=== PATIENT | male | born 1945 | race Caucasian/White ===

== ENCOUNTER → 2016-10-08 | Outpatient (CLI) | payer BC ==
[~2016-10-08] MED LIST: ASPI-435 PO; ATOR-24 PO; ATOR-26 PO; CLOP1TAB15 PO; GLIP10TA3 PO; GLIP2.5T11 PO; LOSA50TA6 PO; METF1000 PO; METO50TA7 PO; PANT40TA PO
[2016-10-08 08:28] LABS: HEMATOCRIT 39.5 % (42-52); MEAN CELL VOLUME 87.8 fL (80-100); MEAN CORPUSCULAR HEMOGLOBIN 29.8 pg (25-34); MEAN CORPUSCULAR HGB CONC 33.9 g/dl (32-36); MEAN PLATELET VOLUME 11.7 fL (7.4-10.4); PLATELET COUNT 171 K/uL (130-400); WHITE BLOOD COUNT 7.35 K/uL (4.8-10.8)
[2016-10-08 09:00] LABS: ALT/SGPT 18 U/L (12-78); AST/SGOT 9 U/L (15-37); BLOOD UREA NITROGEN 17 mg/dl (7-18); BUN/CREATININE RATIO 15.5 (10-20); CALCIUM 8.9 mg/dl (8.5-10.1); CARBON DIOXIDE 27 mmol/L (21-32); CHLORIDE 110 mmol/L (98-107); GLUCOSE 163 mg/dl (70-99); POTASSIUM 3.9 mmol/L (3.5-5.1); SODIUM 147 mmol/L (136-145)
== END | disposition home or self-care (01) ==
LOC: C.LAB 07:08
PROVIDERS: ATTEND Internal Medicine Cardiovascular Disease
DX: I10 Essential (primary) hypertension (principal); E78.5 Hyperlipidemia, unspecified; I25.10 Atherosclerotic heart disease of native coronary artery without angina pectoris

== ENCOUNTER 2016-11-17 12:57 | Emergency (ER) | payer BC ==
[~2016-11-17] VITALS: Ht 175.3 cm; Wt 78.2 kg
[~2016-11-17 12:57] MED LIST changes: -ATOR-24 PO; -ATOR-26 PO; -CLOP1TAB15 PO; -GLIP10TA3 PO; -GLIP2.5T11 PO; -LOSA50TA6 PO; -PANT40TA PO
[2016-11-17 12:59] VITALS: TEMP 36.5; Ht 175.3 cm; Wt 78.2 kg
[2016-11-17] MEDS ORDERED: SODIUM CHLORIDE 0.9% 1000ML 1,000 ML IV STA (13:07)
[2016-11-17] MEDS ORDERED: SODIUM CHLORIDE 0.9% 1000ML 500 ML IV STA (13:07)
[2016-11-17 13:24] LABS: BASO % 0.3 %; BASO ABS # 0.03 K/uL (0-0.2); COMPLETE YES; EOS % 2.4 %; HEMATOCRIT 37.8 % (42-52); IG% 0.2 %; LYMPH % 16.3 %; MEAN CELL VOLUME 85.9 fL (80-100); MEAN CORPUSCULAR HEMOGLOBIN 30.7 pg (25-34); MEAN CORPUSCULAR HGB CONC 35.7 g/dl (32-36); MEAN PLATELET VOLUME 11.4 fL (7.4-10.4); MONO % 6.3 %; NEUT % 74.5 %; PLATELET COUNT 172 K/uL (130-400); WHITE BLOOD COUNT 9.81 K/uL (4.8-10.8)
[2016-11-17 13:44] LABS: BUN/CREATININE RATIO 13.1 (10-20); CALCIUM 8.9 mg/dl (8.5-10.1); CREATININE 1.3 mg/dl (0.60-1.40); POTASSIUM 4.4 mmol/L (3.5-5.1)
[2016-11-17 13:49] LABS: ALB/GLOB RATIO 1.3 (0.9-2)
--- NOTE | 2016-11-17 13:52 | DIAGNOSTIC IMAGING REPORT ---
CHEST ONE VIEW PORTABLE CLINICAL HISTORY: EVALUATE ALTERED MENTAL STATUS/WEAKNESS dyspnea COMPARISON STUDY: 10/21/2014 FINDINGS: The bones soft tissues and hemidiaphragms are normal. The cardiomediastinal silhouette is normal. The lungs are clear. The pulmonary vasculature is normal. IMPRESSION: Negative chest. Electronically signed by: Prince Nazario M.D. 11/17/2016 1:50 PM Dictated Date/Time: 11/17/2016 1:50 PM
[2016-11-17 13:56] LABS: BETA-HYDROXYBUTYRATE 2.56 mg/dL (0.2-2.81)
[2016-11-17] MEDS ORDERED: ATOR-24 PO (14:16)
[2016-11-17] MEDS ORDERED: PANT40TA PO (14:16)
[2016-11-17] MEDS ORDERED: GLIP2.5T11 PO (14:16)
[2016-11-17] MEDS ORDERED: LOSA50TA6 PO (14:17)
[2016-11-17] MEDS ORDERED: CLOP1TAB15 PO (14:17)
--- NOTE | 2016-11-17 15:09 | EMERGENCY ROOM VISIT NOTE ---
History Report prepared by Missy: Yeni Hernández Under the Supervision of: Dr. Jeff Toscano M.D. First contact with patient: 13:00 Chief Complaint: ILLNESS Stated Complaint: RES History of Present Illness The patient is a 71 year old male who presents to the Emergency Room with complaints of resolved lightheadedness occurring a few minutes prior to arrival. He felt at baseline earlier today. The patient was having a discussion about end-of-life care for his when he had the onset of his symptoms. He was standing up at the time but sat down when he started feeling nauseated. He denies vomiting. He also reports feeling flushed and diaphoretic. He denies losing consciousness. As per Dr. Madden, community engagement representative with [facility], the patient's blood sugar level was 313 and he was bradycardic. He has a history of diabetes. His blood sugar level has been fluctuating in the past few days. He had one sandwich today. The patient states that he feels better now. He currently denies any pain, nausea, or any other symptoms. He denies chest pain, shortness of breath, or any other complaints. He does not have any history of syncopal episodes. The patient has a history of cardiac disease. He denies any chest pain or discomfort in the past few weeks. Source of History: patient, other (Dr. Madden) Onset: a few minutes prior to arrival Position: other (global) Symptom Intensity: No pain Quality: other (lightheadedness) Timing: resolved Associated Symptoms: + diaphoresis, + nausea (resolved), No LOC, No SOB, No chest pain, No vomiting Review of Systems See HPI for pertinent positives & negatives. A total of 10 systems reviewed and were otherwise negative. 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 (2) Diab Deanna Wo Compl, Type Ii Or Unspec Type, Uncontrolled (3) Esophagitis Nos (4) Hypertension Nos (5) Mitral Valve Disorder (6) Personal History Of Urinary Calculi (7) Pure Hypercholesterolem Family History Cancer Diabetes mellitus Social History Smoking Status: Former Smoker Alcohol Use: occasionally Marital Status: Housing Status: lives with family Occupation Status: employed Current/Historical Medications Scheduled Aspirin (Aspirin 81), 81 MG PO DAILY Atorvastatin (Lipitor), 1 TAB PO DAILY Clopidogrel (Plavix), 75 MG PO DAILY Glipizide (Glipizide Er), 1 TAB PO DAILY Losartan Potassium (Cozaar), 1 TAB PO DAILY Metformin Hcl (Glucophage), 1,000 MG PO DAILY Metoprolol Succ (Toprol Xl) (Toprol-Xl), 50 MG PO DAILY Pantoprazole (Protonix), 40 MG PO DAILY Allergies Coded Allergies: No Known Allergies (Verified , 10/21/14) Physical Exam Vital Signs Date Time Temp Pulse Resp B/P Pulse Ox O2 Delivery O2 Flow Rate FiO2 11/17/16 15:48 62 16 142/75 99 11/17/16 14:30 61 16 139/76 100 Nasal Cannula 2.0 11/17/16 13:30 61 22 153/77 100 Nasal Cannula 4.0 11/17/16 13:01 59 11/17/16 12:59 36.5 64 18 143/84 100 Nasal Cannula 6.0 Physical Exam GENERAL: Patient is in no acute distress. HEENT: No acute trauma, normocephalic atraumatic, mucous membranes moist, no nasal congestion, no scleral icterus. NECK: No stridor, no adenopathy, no meningismus, trachea is midline. LUNGS: Clear to auscultation bilaterally, no wheeze, no rhonchi, breath sounds equal. HEART: Without murmurs gallops or rubs, regular rate and rhythm. ABDOMEN: Soft, nontender, bowel sounds positive, no hernias, no peritonitis. EXTREMITIES: No cyanosis or edema, full range of motion of all the joints without pain or difficulty, no signs for acute trauma. NEUROLOGIC: Oriented x 3, no acute motor or sensory deficits, no focal weakness. SKIN: Pale and slightly sweaty, no rash. Medical Decision & Procedures ER Provider Diagnostic Interpretation: X-ray results as stated below per interpretation by me and the radiologist: CHEST ONE VIEW PORTABLE CLINICAL HISTORY: EVALUATE ALTERED MENTAL STATUS/WEAKNESS dyspnea COMPARISON STUDY: 10/21/2014 FINDINGS: The bones soft tissues and hemidiaphragms are normal. The cardiomediastinal silhouette is normal. The lungs are clear. The pulmonary vasculature is normal. IMPRESSION: Negative chest. Electronically signed by: Prince Nazario M.D. 11/17/2016 1:50 PM Dictated Date/Time: 11/17/2016 1:50 PM Laboratory Results 11/17/16 13:12 Red Blood Count 4.40, Mean Corpuscular Volume 85.9, Mean Corpuscular Hemoglobin 30.7, Mean Corpuscular Hemoglobin Concent 35.7, Mean Platelet Volume 11.4, Neutrophils (%) (Auto) 74.5, Lymphocytes (%) (Auto) 16.3, Monocytes (%) (Auto) 6.3, Eosinophils (%) (Auto) 2.4, Basophils (%) (Auto) 0.3, Neutrophils # (Auto) 7.30, Lymphocytes # (Auto) 1.60, Monocytes # (Auto) 0.62, Eosinophils # (Auto) 0.24, Basophils # (Auto) 0.03 11/17/16 13:12 Test 11/17/16 13:12 11/17/16 15:14 11/17/16 15:18 White Blood Count 9.81 K/uL (4.8-10.8) Red Blood Count 4.40 M/uL (4.7-6.1) Hemoglobin 13.5 g/dL (14.0-18.0) Hematocrit 37.8 % (42-52) Mean Corpuscular Volume 85.9 fL (80-100) Mean Corpuscular Hemoglobin 30.7 pg (25-34) Mean Corpuscular Hemoglobin Concent 35.7 g/dl (32-36) Platelet Count 172 K/uL (130-400) Mean Platelet Volume 11.4 fL (7.4-10.4) Neutrophils (%) (Auto) 74.5 % Lymphocytes (%) (Auto) 16.3 % Monocytes (%) (Auto) 6.3 % Eosinophils (%) (Auto) 2.4 % Basophils (%) (Auto) 0.3 % Neutrophils # (Auto) 7.30 K/uL (1.4-6.5) Lymphocytes # (Auto) 1.60 K/uL (1.2-3.4) Monocytes # (Auto) 0.62 K/uL (0.11-0.59) Eosinophils # (Auto) 0.24 K/uL (0-0.5) Basophils # (Auto) 0.03 K/uL (0-0.2) RDW Standard Deviation 42.1 fL (36.4-46.3) RDW Coefficient of Variation 13.4 % (11.5-14.5) Immature Granulocyte % (Auto) 0.2 % Immature Granulocyte # (Auto) 0.02 K/uL (0.00-0.02) Anion Gap 9.0 mmol/L (3-11) Est Creatinine Clear Calc Drug Dose 50.6 ml/min Estimated GFR () 62.7 Estimated GFR (Non- 54.1 BUN/Creatinine Ratio 13.1 (10-20) Calcium Level 8.9 mg/dl (8.5-10.1) Total Bilirubin 0.9 mg/dl (0.2-1) Aspartate Amino Transf (AST/SGOT) 9 U/L (15-37) Alanine Aminotransferase (ALT/SGPT) 23 U/L (12-78) Alkaline Phosphatase 81 U/L (45-117) Total Protein 6.8 gm/dl (6.4-8.2) Albumin 3.9 gm/dl (3.4-5.0) Globulin 2.9 gm/dl (2.5-4.0) Albumin/Globulin Ratio 1.3 (0.9-2) Beta-Hydroxybutyric Acid 2.56 mg/dL (0.2-2.81) Bedside Glucose 329 mg/dl (70-99) Bedside Troponin I 0.000 ng/ml (0-0.045) Laboratory results reviewed by me. Medications Administered Medications (Trade) Dose Ordered Sig/Daniel Route Start Time Stop Time Status Last Admin Dose Admin Sodium Chloride 500 ml @ 999 mls/hr Q31M STAT IV 11/17/16 13:07 11/17/16 13:37 DC 11/17/16 13:13 999 MLS/HR Sodium Chloride (Nss 1000ml) 1,000 ml @ 200 mls/hr Q5H STAT IV 11/17/16 13:07 11/17/16 16:25 DC 11/17/16 13:12 200 MLS/HR ECG Indication: other (Lightheadedness) Rate (beats per minute): 61 Rhythm: sinus rhythm Findings: PVC, no acute ischemic change, no ectopy ED Course 1300: The patient was evaluated in room D04B. A complete history and physical exam was performed. 1307: Sodium Chloride 1000 ml @ 200 mls/hr IV, Sodium Chloride 500 mls/hr IV 1525: Reevaluated the patient who is feeling a lot better. Family states that the patient seems to be at baseline. Discussed results and discharge instructions: He verbalized understanding and agreement. The patient is ready for discharge. Medical Decision Differential diagnosis includes but is not limited to near syncope, vasovagal syncope. stress response, dysrhythmia, hypotension, anemia, electrolyte imbalance, dehydration, [place]. There is no leukocytosis or concerning anemia. Renal panel testing show some hyperglycemia with a sugar around 300, no kidney failure. There was no hepatitis. EKG showed a sinus rhythm with a PVC, no acute ischemia. Cardiac enzyme testing times 2 is not consistent with acute cardiac injury. Chest x- ray shows no cardiomegaly or CHF. There was no pneumonia. On exam, there were no focal neurologic deficits. The patient received IV saline, he did eat lunch. He feels much better than before and currently has no complaints. His family believes he is at baseline. I think the patient had a strong grief response and a near syncopal episode as a result. He is hyperglycemic but he does run higher with his sugars. He does feel he can be discharged, he would like to go back to the ICU. He was encouraged to keep a very close watch on his sugars. He will stay better hydrated. If worsening, he can return. Impression Primary Impression: Near syncope Additional Impression: Grief reaction Scribe Attestation The scribe's documentation has been prepared under my direction and personally reviewed by me in its entirety. I confirm that the note above accurately reflects all work, treatment, procedures, and medical decision making performed by me. Departure Information Dispostion Home / Self-Care Referrals Gianni Lugo M.D. (PCP) Forms HOME CARE DOCUMENTATION FORM, IMPORTANT VISIT INFORMATION, WORK / SCHOOL INSTRUCTIONS Patient Instructions My [facility] [address] [employer] Additional Instructions stay well hydrated your sugar was in the 300 range today--keep a watch to be sure it is coming down and not worsening return for worsening symptoms workup today was reassuring Problem Qualifiers
[2016-11-17 15:48] VITALS: BP 142/75; PULSE 62; O2SAT 99
[2016-11-18] MEDS ORDERED: ATOR-26 PO (19:28)
[2016-11-18] MEDS ORDERED: GLIP10TA3 PO (19:28)
== END 2016-11-17 15:49 | disposition home or self-care (01) ==
LOC: EDBD 12:57 → C.EDD 12:59
DX: R55 Syncope and collapse (principal); F43.20 Adjustment disorder, unspecified; E11.9 Type 2 diabetes mellitus without complications; I25.10 Atherosclerotic heart disease of native coronary artery without angina pectoris; I10 Essential (primary) hypertension; Z87.442 Personal history of urinary calculi; E78.00 Pure hypercholesterolemia, unspecified; Z83.3 Family history of diabetes mellitus; Z87.891 Personal history of nicotine dependence; Z79.82 Long term (current) use of aspirin; Z79.899 Other long term (current) drug therapy

== ENCOUNTER 2016-11-18 19:18 | Emergency (ER) | payer BC ==
[~2016-11-18] VITALS: Ht 170.2 cm; Wt 78.0 kg
[2016-11-18 19:18] VITALS: TEMP 36.9; Ht 170.2 cm; Wt 78.0 kg
[~2016-11-18 19:18] MED LIST changes: +ATOR-24 PO; +CLOP1TAB15 PO; +GLIP2.5T11 PO; +LOSA50TA6 PO; +PANT40TA PO
[2016-11-18] MEDS ORDERED: GLIP10TA3 PO (19:28)
[2016-11-18] MEDS ORDERED: ATOR-26 PO (19:28)
--- NOTE | 2016-11-18 22:06 | EMERGENCY ROOM VISIT NOTE ---
History Report prepared by Missy: Delia Shanks Under the Supervision of: Dr. Alberto Dhaliwal M.D. First contact with patient: 21:55 Chief Complaint: OTHER COMPLAINT Stated Complaint: CODE PURPLE History of Present Illness The patient is a 71 year old male who presents to the Emergency Room with complaints of an episode of near syncope this evening in the hospital. The patient was visiting his in the ICU today. The patient was told that his this evening. Shortly afterward, the patient's blood sugar went up and he became dizzy. The patient almost passed out. The patient has a history of diabetes. The patient states that he would like to go home. The patient denies chest pain, shortness of breath, vomiting, blood or black stool, fevers, feeling numb or weak. The patient states that he has been eating normally. Source of History: patient, family Onset: this evening Position: other (global ) Quality: other (near syncope) Timing: other (episode ) Associated Symptoms: No SOB, No chest pain, No fevers, No melena, No numbness, No vomiting, No weakness Review of Systems See HPI for pertinent positives & negatives. A total of 10 systems reviewed and were otherwise negative. 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 Nurse's notes were reviewed and I agree with. Family History Cancer Diabetes mellitus Social History Smoking Status: Never Smoker Alcohol Use: occasionally Marital Status: Housing Status: lives with family Occupation Status: employed Current/Historical Medications Scheduled Aspirin (Aspirin 81), 81 MG PO DAILY Atorvastatin (Lipitor), 80 MG PO DAILY Clopidogrel (Plavix), 75 MG PO DAILY Glipizide (Glucotrol), 10 MG PO BID Losartan Potassium (Cozaar), 1 TAB PO DAILY Metformin Hcl (Glucophage), 1,000 MG PO BID Metoprolol Succ (Toprol Xl) (Toprol-Xl), 50 MG PO DAILY Pantoprazole (Protonix), 40 MG PO DAILY Allergies Coded Allergies: No Known Allergies (Verified , 11/18/16) Physical Exam Vital Signs Date Time Temp Pulse Resp B/P Pulse Ox O2 Delivery O2 Flow Rate FiO2 11/18/16 22:08 69 16 150/85 96 11/18/16 21:39 69 16 150/85 96 Room Air 11/18/16 19:30 61 11/18/16 19:18 36.9 60 18 165/99 96 Room Air Physical Exam General: Non ill appearing older male in no acute distress. HEENT: Normal cephalic atraumatic. Pupils are equal round and reactive to light. Extraocular movements are intact. Oropharynx is pink with moist mucous membranes. No swelling of the mouth lips or tongue. Neck: Supple with a midline trachea. No meningeal signs or stiffness, no JVD or bruits. No Stridor. Chest: Clear to auscultation bilaterally. No wheezes or rhonchi. No increased work of breathing. Heart: regular rate and rhythm. Abdomen: Soft nontender, nondistended without rebound guarding or rigidity. Extremities: No cyanosis clubbing or edema. No calf tenderness or assymetry Spine/Back. Non tender to palpation. No CVA tenderness Skin: Good turgor without rashes. Neurologic exam: Cranial nerves two through 12 are intact. Motor and sensation are intact and symmetrical throughout. Medical Decision & Procedures Laboratory Results Test 11/18/16 19:25 Bedside Glucose 239 mg/dl (70-99) Laboratory studies as stated above per my review. ECG Indication: syncope (near syncope) Rate (beats per minute): 60 Rhythm: normal sinus Findings: no acute ischemic change, no ectopy Comparison ECG Date: November 17, 2016 Change: no significant change ED Course 2156: Past medical records reviewed. The patient was evaluated in room C9, and a complete history and physical examination were performed. 2210: Upon reevaluation, the patient is feeling better. I discussed the results and treatment plan with the patient. He verbalized agreement of the treatment plan. The patient was discharged home. Medical Decision Differentials include, but are not limited to; diabetic emergency, acute coronary syndrome, infection, CVA, electrolyte or metabolic abnormality. This patient comes in as described above. He was placed in room C9. He is here for treatment and evaluation of dizziness/near syncopal episode. He was in the hospital with his who unfortunately . shortly after hearing the news ,he became dizzy and his blood sugar was high as well. He says he feels fine now and just wants to go home. He has no chest pain. There is no syncope was here last night after feeling dizzy and had a normal workup. He has no fall focal numbness weakness or headache .no trauma, no blood or melena in his stool. Blood sugar was in the 200s. His EKG shows no acute ischemic changes or ectopy. There is no change compared to EKG from yesterday and the patient declined blood work and says he just wants to go home. He did let me do an EKG. I asked talked to the patient's family members at length I told him that I cannot 100% rule out a cardiac event or other etiology based on the workup so far he again declines and just wants to go home. He thinks this most likely was related to stress and he seems to be doing okay now. Family is in agreement with this. I encouraged him follow-up with his doctor Monday for recheck or return to the ER if: chest pain, worsening of symptoms, fever or chills, any new problems or concerns. He is happy with the plan and discharged to home Impression Primary Impression: Near syncope Scribe Attestation The scribe's documentation has been prepared under my direction and personally reviewed by me in its entirety. I confirm that the note above accurately reflects all work, treatment, procedures, and medical decision making performed by me. Departure Information Dispostion Home / Self-Care Referrals Gianni Lugo M.D. (PCP) Forms HOME CARE DOCUMENTATION FORM, IMPORTANT VISIT INFORMATION, WORK / SCHOOL INSTRUCTIONS Patient Instructions My [facility] [employer] Additional Instructions Rest Drink plenty of fluids Check youtr blood sugar frequently Return if: worsening of symptoms, chest pain, shortness of breath, fever, increasng pain, any new problems or concerns Follow-up with your doctor in 1-2 days for recheck
[2016-11-18 22:08] VITALS: BP 150/85; PULSE 69; O2SAT 96
== END 2016-11-18 22:11 | disposition home or self-care (01) ==
LOC: EDBD 19:18 → C.EDC 19:19
DX: R55 Syncope and collapse (principal); I25.10 Atherosclerotic heart disease of native coronary artery without angina pectoris; E11.9 Type 2 diabetes mellitus without complications; I10 Essential (primary) hypertension; I05.9 Rheumatic mitral valve disease, unspecified; Z87.442 Personal history of urinary calculi; E78.00 Pure hypercholesterolemia, unspecified; Z79.82 Long term (current) use of aspirin

== ENCOUNTER → 2017-02-17 | Outpatient (CLI) | payer BC ==
[~2017-02-17] MED LIST changes: -ATOR-24 PO; +ATOR-26 PO; +GLIP10TA3 PO; -GLIP2.5T11 PO
[2017-02-17 13:22] LABS: ESTIMATED AVERAGE GLUCOSE 223 mg/dl; HA1C FLAG Normal (Normal)
[2017-02-17 13:31] LABS: ALT/SGPT 25 U/L (12-78); AST/SGOT 10 U/L (15-37); BLOOD UREA NITROGEN 16 mg/dl (7-18); BUN/CREATININE RATIO 12.5 (10-20); CARBON DIOXIDE 28 mmol/L (21-32); CHLORIDE 104 mmol/L (98-107); CHOLESTEROL 83 mg/dl (0-200); GLUCOSE 337 mg/dl (70-99); POTASSIUM 4.1 mmol/L (3.5-5.1); SODIUM 142 mmol/L (136-145); TRIGLYCERIDES 66 mg/dl (0-150); VERY LOW DENSITY LIPOPROT CALC 13 mg/dl
[2017-02-17 14:04] LABS: ALB/GLOB RATIO 1.1 (0.9-2); ALKALINE PHOSPHATASE 75 U/L (45-117); HDL CHOLESTEROL 41 mg/dl
[2017-02-17 14:10] LABS: HEMATOCRIT 41.2 % (42-52); MEAN CELL VOLUME 89.6 fL (80-100); MEAN CORPUSCULAR HEMOGLOBIN 29.3 pg (25-34); MEAN CORPUSCULAR HGB CONC 32.8 g/dl (32-36); MEAN PLATELET VOLUME 11.7 fL (7.4-10.4); PLATELET COUNT 200 K/uL (130-400); WHITE BLOOD COUNT 8.16 K/uL (4.8-10.8)
[2017-02-17 14:12] LABS: BASO ABS # 0.15 K/uL (0-0.2); BASOPHIL % 1.8 % (0-2); BETA-HYDROXYBUTYRATE 1.22 mg/dL (0.2-2.81); COMPLETE YES; ECHINOCYTES 1+; EOSINOPHIL % 1.8 %; LYMPH ABS # 1.65 K/uL (1.2-3.4); LYMPHOCYTE % 20.2 %; NEUTROPHILS % 71.8 %; VARIANT LYM ABS # 0.15 K/uL; VARIANT LYMPHOCYTE % 1.8 %
== END | disposition home or self-care (01) ==
LOC: C.LABSPEC 12:12
PROVIDERS: ATTEND Internal Medicine
DX: E11.65 Type 2 diabetes mellitus with hyperglycemia (principal); I25.10 Atherosclerotic heart disease of native coronary artery without angina pectoris; E78.5 Hyperlipidemia, unspecified; I10 Essential (primary) hypertension

== ENCOUNTER → 2017-06-26 | Outpatient (CLI) | payer BC ==
[2017-06-26 12:57] LABS: ESTIMATED AVERAGE GLUCOSE 223 mg/dl; HA1C FLAG Normal (Normal)
[2017-06-26 13:10] LABS: ALT/SGPT 19 U/L (12-78); BLOOD UREA NITROGEN 24 mg/dl (7-18); BUN/CREATININE RATIO 17.9 (10-20); CALCIUM 9.2 mg/dl (8.5-10.1); CARBON DIOXIDE 29 mmol/L (21-32); CHLORIDE 106 mmol/L (98-107); CHOLESTEROL 85 mg/dl (0-200); CREATININE 1.33 mg/dl (0.60-1.40); GLUCOSE 176 mg/dl (70-99); POTASSIUM 4.1 mmol/L (3.5-5.1); SODIUM 142 mmol/L (136-145)
[2017-06-26 13:13] LABS: ALB/GLOB RATIO 1.2 (0.9-2); ALKALINE PHOSPHATASE 74 U/L (45-117); AST/SGOT 6 U/L (15-37); CHOLESTEROL/HDL RATIO 2.2; HDL CHOLESTEROL 38 mg/dl; TRIGLYCERIDES 138 mg/dl (0-150); VERY LOW DENSITY LIPOPROT CALC 28 mg/dl
== END | disposition home or self-care (01) ==
LOC: C.LABSPEC 12:17
PROVIDERS: ATTEND Internal Medicine
DX: I25.10 Atherosclerotic heart disease of native coronary artery without angina pectoris (principal); E11.65 Type 2 diabetes mellitus with hyperglycemia; E78.5 Hyperlipidemia, unspecified; I10 Essential (primary) hypertension

== ENCOUNTER → 2017-09-06 | Day surgery (SDC) | payer BC ==
[2017-08-21 07:36] VITALS: Ht 175.3 cm; Wt 79.5 kg
[~2017-09-06] VITALS: Ht 175.3 cm; Wt 79.5 kg
[~2017-09-06] MED LIST changes: +500ML BSS 0.3ML EPI 1:1000PF IRRIG ONE; +ACETAMINOPHEN 325 MG TAB PO PRN; +AMVISC PLUS 0.8ML SYRINGE INT OCU ONE; +ATROPINE SULFATE 0.1 MG/ML 5ML SYR IV PRN; +AcetaZOLAMIDE 250 MG TAB PO SCH; +BETAXOLOL HCL 0.25% OP SUSP PER DROP CHARGE OPL SCH; +BRIMONIDINE TART 0.2% OP SOLN PER DROP CHARGE ONE; +BSS FLUSH ONE; +ENDOCOAT 0.85ML SYRINGE INT OCU ONE; +EpHEDrine SULFATE INJ 50 MG/ML AMP IV PRN; +EpINEphrine INJ 1MG/ML AMP 1 MG/ML AMP ONE; +LACTATED RINGER'S 1000ML 500 ML IV SCH; +LIDOCAINE 4% OP SOLN DROP CHARGE ONE; +LIDOCAINE 4% OP SOLN DROP CHARGE OPL SCH; +LIDOCAINE HCL 1% MPF 2 ML VIAL ONE; -LOSA50TA6 PO; +MIDAZOLAM HCL 1 MG/ML 2ML VIAL ONE; +MIX: 4ML BSS 1ML EPI 1:1000 PF INSTIL ONE; +MOXIFLOXACIN OPH SOLN PER DROP CHARGE ONE; +NovoLIN-R INSULIN PER UNIT CHARGE ONE; +OCUCOAT 1 ML SOLN IO ONE; -PANT40TA PO; +POVIDONE-IODINE OP SOLN 30 ML BTL ONE; +PROPARACAINE 0.5% OP SOLN PER DROP CHARGE OPL SCH; +TOBRAMYCIN/DEXAMETHASONE OPH OINT PER APPLN CHARGE ONE
--- NOTE | 2017-09-06 06:45 | History & Physical Bridge - SC ---
H&P Re-Evaluation Bridge Note: I have examined the patient, reviewed the History & Physical and in the interval since the performance of the History & Physical I have noted the following changes of clinical significance: No changes noted
[2017-09-06] MEDS: PHENYLEPHRINE HCL 2.5% OP SOLN PER DROP CHARGE OPL SCH ×2 (06:52→06:57)
[2017-09-06] MEDS: TROPICAMIDE 1% OP SOLN PER DROP CHARGE OPL SCH ×2 (06:53→06:58)
[2017-09-06] MEDS: CYCLOPENTOLATE HCL 1% OP SOLN PER DROP CHARGE OPL SCH ×2 (06:54→06:59)
[2017-09-06] MEDS: MOXIFLOXACIN OPH SOLN PER DROP CHARGE OPL SCH ×2 (06:55→07:07)
--- NOTE | 2017-09-06 07:35 | Discharge Instructions-SurgCtr ---
Discharge Instructions Date of Service Sep 06, 2017. Visit Reason for Visit: Cataract Left Eye Discharge Discharge Diagnosis / Problem: lens implant left eye Discharge Goals Goal(s): Improve function Medications Stopped Medications Name(s): metformin stopped 2 days ago Activity Recommendations Activity Limitations: resume your previous activity Lifting Limitations: no more than 10 pounds Exercise/Sports Limitations: gradually increase as tolerated May Resume Sexual Activity: when tolerated Shower/Bathe: tomorrow Driving or Machine Use: resume 1 day after discharge Anesthesia . Post Anesthesia Instructions: If you have had General Anesthesia or IV Sedation: * Do not drive today. * Resume driving when surgeon permits. * Do not make important decisions or sign legal documents today. * Call surgeon for: 1. Temperature elevations greater than 101 degrees F. 2. Uncontrollable pain. 3. Excessive bleeding. 4. Persistent nausea and vomiting. 5. Medication intolerance (nausea, vomiting or rash). * For nausea and vomiting use only clear liquids such as: tea, soda, bouillon until nausea subsides, then gradually increase diet as tolerated. * If you have any concerns or questions, call your surgeon's office. If physician is unavailable and it is an emergency, call 911 or go to the nearest emergency room. . Instructions / Follow-Up Instructions / Follow-Up ACTIVITY RECOMMENDATIONS: * Light activities. * Mild irritation and blurred vision are common for the first few days. * You may walk outside, read, watch television. * Redness around the white part of the eye is common. MEDICATIONS: Resume previous medications unless instructed otherwise by your surgeon. * Take white Diamox (Acetazolamide) tablet at 1 pm today. Start all eye drops at 1 pm today: * Eye drops (today and tomorrow): Prednisone - one drop in operative eye every 3 hours while awake Ofloxacin - one drop in operative eye every 3 hours while awake Prolensa - one drop in operative eye once daily SPECIAL CARE INSTRUCTIONS: * Tape plastic shield over eye to sleep at night. Call your doctor at with any concerns or problems. FOLLOW UP VISIT: Follow-up with Dr Emery at [place] office as scheduled. Diet Recommendations Home Diet: no limitations Procedures Procedures Performed: cataract extraction with lens implant Pending Studies Studies pending at discharge: no Medical Emergencies . Who to Call and When: Medical Emergencies: If at any time you feel your situation is an emergency, please call 911 immediately. . Non-Emergent Contact Non-Emergency issues call your: Sane Rn Call Non-Emergent contact if: your pain is not controlled [phone] . . "Provider Documentation" section prepared by Lalo Emery. .
--- NOTE | 2017-09-06 07:37 | [facility] Operative Report ---
Operative Report Date of Service Sep 06, 2017. Operative Report 1. PREOPERATIVE DIAGNOSIS: Senile nuclear cataract, left eye. 2. POSTOPERATIVE DIAGNOSIS: Senile nuclear cataract, left eye. 3. PROCEDURE: Phacoemulsification of left cataract with posterior chamber lens implant, type Bausch [employer] Lomb, model MX60, power +22.0 diopters. ANESTHESIA: Local standby. SURGEON: Dr. Emery. COMPLICATIONS: None. OPERATING TIME: 10 minutes. 4. OPERATION AND FINDINGS: DESCRIPTION OF PROCEDURE: The left pupil was dilated. The anesthetic was administered using a topical technique. The left eye was prepped and draped. A speculum was placed. A clear corneal incision was formed. The chamber was filled with Amvisc Plus and Endocoat. Epinephrine solution was used. A paracentesis was placed. A capsulorrhexis was performed. The nucleus was hydrodissected. The lens was removed with phacoemulsification. Time was 2.99 seconds. The aspiration unit was used to remove the cortex. The capsule was filled with Amvisc Plus. The lens implant was folded and placed into the capsule. The incision was hydrated. The Amvisc was aspirated. The wound was secure. The chamber was deep. The pupil was round. Brimonidine, TobraDex ointment and Vigamox solution were placed. The speculum was removed. The patient was returned to the Recovery Room in stable condition. I attest to the content of the Intraoperative Record and any orders documented therein. Any exceptions are noted below. The scribe's documentation has been prepared in my presence, under my direction and personally reviewed by me in its entirety. I confirm that the note above accurately reflects all work, treatment, procedures, and medical decision making performed by me. I personally scribed for Lalo Emery M.D. ([email or web address]) on 09/06/17 at 07:37. Electronically submitted by Marely Marie ([email or web address]).
[2017-09-06 07:49] VITALS: TEMP 36.8
--- NOTE | 2017-09-06 08:02 | Anesthesia Progress Nt - [facility] ---
Anesthesia Post Op Note Date & Time Sep 06, 2017 at 08:01 Vital Signs Pain Intensity: 0 Vital Signs Past 12 Hours Date Time Temp Pulse Resp B/P (MAP) Pulse Ox O2 Delivery O2 Flow Rate FiO2 09/06/17 06:40 36.7 74 16 177/95 (122) 95 Room Air Notes Mental Status: alert / awake / arousable, participated in evaluation Pt Amnestic to Procedure: Yes Nausea / Vomiting: adequately controlled Pain: adequately controlled Airway Patency, RR, SpO2: stable & adequate BP & HR: stable & adequate Hydration State: stable & adequate Anesthetic Complications: no major complications apparent Patient instructed to take his metformin and eat when he returns home.
--- NOTE | 2017-09-06 08:03 | Anesthesia Progress Nt - [facility] ---
Anesthesia Post Op Note Date & Time Sep 06, 2017 at 08:02 Vital Signs Pain Intensity: 0 Vital Signs Past 12 Hours Date Time Temp Pulse Resp B/P (MAP) Pulse Ox O2 Delivery O2 Flow Rate FiO2 09/06/17 06:40 36.7 74 16 177/95 (122) 95 Room Air Notes Mental Status: alert / awake / arousable, participated in evaluation Pt Amnestic to Procedure: Yes Nausea / Vomiting: adequately controlled Pain: adequately controlled Airway Patency, RR, SpO2: stable & adequate BP & HR: stable & adequate Hydration State: stable & adequate Anesthetic Complications: no major complications apparent
[2017-09-06 08:26] VITALS: BP 167/91; PULSE 58; O2SAT 95
== END | disposition home or self-care (01) ==
LOC: X.SURG 06:26
PROVIDERS: ATTEND Specialist
DX: H25.12 Age-related nuclear cataract, left eye (principal); I10 Essential (primary) hypertension; E78.00 Pure hypercholesterolemia, unspecified; E78.5 Hyperlipidemia, unspecified; E11.9 Type 2 diabetes mellitus without complications; Z87.442 Personal history of urinary calculi; F17.220 Nicotine dependence, chewing tobacco, uncomplicated

== ENCOUNTER → 2017-09-27 | Day surgery (SDC) | payer BC ==
[2017-09-26 15:03] VITALS: Ht 175.3 cm; Wt 79.5 kg
[~2017-09-27] VITALS: Ht 175.3 cm; Wt 79.5 kg
[~2017-09-27] MED LIST changes: -BETAXOLOL HCL 0.25% OP SUSP PER DROP CHARGE OPL SCH; +BETAXOLOL HCL 0.25% OP SUSP PER DROP CHARGE OPR SCH; -EpHEDrine SULFATE INJ 50 MG/ML AMP IV PRN; +INSULIN HUMAN REGULAR SC ONE; -LIDOCAINE 4% OP SOLN DROP CHARGE OPL SCH; +LIDOCAINE 4% OP SOLN DROP CHARGE OPR SCH; -PROPARACAINE 0.5% OP SOLN PER DROP CHARGE OPL SCH; +PROPARACAINE 0.5% OP SOLN PER DROP CHARGE OPR SCH
[2017-09-27] MEDS: PHENYLEPHRINE HCL 2.5% OP SOLN PER DROP CHARGE OPR SCH ×2 (08:17→08:24)
[2017-09-27] MEDS: TROPICAMIDE 1% OP SOLN PER DROP CHARGE OPR SCH ×2 (08:18→08:25)
[2017-09-27] MEDS: CYCLOPENTOLATE HCL 1% OP SOLN PER DROP CHARGE OPR SCH ×2 (08:19→08:26)
[2017-09-27] MEDS: MOXIFLOXACIN OPH SOLN PER DROP CHARGE OPR SCH ×2 (08:20→08:31)
--- NOTE | 2017-09-27 08:56 | [facility] Operative Report ---
Operative Report Date of Service Sep 27, 2017. Operative Report 1. PREOPERATIVE DIAGNOSIS: Senile nuclear cataract, right eye. 2. POSTOPERATIVE DIAGNOSIS: Senile nuclear cataract, right eye. 3. PROCEDURE: Phacoemulsification of right cataract with posterior chamber lens implant, type [employer]ch [employer], model MX60, power +21.0 diopters. ANESTHESIA: Local standby. SURGEON: Dr. Emery. COMPLICATIONS: None. OPERATING TIME: 10 minutes. 4. OPERATION AND FINDINGS: DESCRIPTION OF PROCEDURE: The right pupil was dilated. The anesthetic was administered using a topical technique. The right eye was prepped and draped. A speculum was placed. A clear corneal incision was formed. The chamber was filled with Amvisc Plus and Endocoat. Epinephrine solution was used. A paracentesis was placed. A capsulorrhexis was performed. The nucleus was hydrodissected. The lens was removed with phacoemulsification. Time was 4.44 seconds. The aspiration unit was used to remove the cortex. The capsule was filled with Amvisc Plus. The lens implant was folded and placed into the capsule. An astigmatic incision was placed at the limbus across from the main incision. The incisions were hydrated. The Amvisc was aspirated. The wounds were secure. The chamber was deep. The pupil was round. Brimonidine, TobraDex ointment and Vigamox solution were placed. The speculum was removed. The patient was returned to the Recovery Room in stable condition. I attest to the content of the Intraoperative Record and any orders documented therein. Any exceptions are noted below. The scribe's documentation has been prepared in my presence, under my direction and personally reviewed by me in its entirety. I confirm that the note above accurately reflects all work, treatment, procedures, and medical decision making performed by me. I personally scribed for Lalo Emery M.D. ([email or web address]) on 09/27/17 at 08:56. Electronically submitted by Marely QUIROZ).
[2017-09-27 08:58] VITALS: TEMP 36.3
--- NOTE | 2017-09-27 08:59 | Discharge Instructions-SurgCtr ---
Discharge Instructions Date of Service Sep 27, 2017. Visit Reason for Visit: Cataract Right Eye Discharge Discharge Diagnosis / Problem: lens implant right eye Discharge Goals Goal(s): Improve function Medications Stopped Medications Name(s): METFORMIN- LAST DOSE MONDAY Activity Recommendations Activity Limitations: resume your previous activity Lifting Limitations: no more than 10 pounds Exercise/Sports Limitations: gradually increase as tolerated May Resume Sexual Activity: when tolerated Shower/Bathe: tomorrow Driving or Machine Use: resume 1 day after discharge Anesthesia . Post Anesthesia Instructions: If you have had General Anesthesia or IV Sedation: * Do not drive today. * Resume driving when surgeon permits. * Do not make important decisions or sign legal documents today. * Call surgeon for: 1. Temperature elevations greater than 101 degrees F. 2. Uncontrollable pain. 3. Excessive bleeding. 4. Persistent nausea and vomiting. 5. Medication intolerance (nausea, vomiting or rash). * For nausea and vomiting use only clear liquids such as: tea, soda, bouillon until nausea subsides, then gradually increase diet as tolerated. * If you have any concerns or questions, call your surgeon's office. If physician is unavailable and it is an emergency, call 911 or go to the nearest emergency room. . Instructions / Follow-Up Instructions / Follow-Up ACTIVITY RECOMMENDATIONS: * Light activities. * Mild irritation and blurred vision are common for the first few days. * You may walk outside, read, watch television. * Redness around the white part of the eye is common. MEDICATIONS: Resume previous medications unless instructed otherwise by your surgeon. * Take white Diamox (Acetazolamide) tablet at 1 pm today. Start all eye drops at 1 pm today: * Eye drops (today and tomorrow): Prednisone - one drop in operative eye every 3 hours while awake Ofloxacin - one drop in operative eye every 3 hours while awake Prolensa - one drop in operative eye once daily SPECIAL CARE INSTRUCTIONS: * Tape plastic shield over eye to sleep at night. Call your doctor at with any concerns or problems. FOLLOW UP VISIT: Follow-up with Dr Emery at [place] office as scheduled. Diet Recommendations Home Diet: no limitations Procedures Procedures Performed: Right Eye Cataract Phacoemulsification With Intraocular Lens Implants Pending Studies Studies pending at discharge: no Medical Emergencies . Who to Call and When: Medical Emergencies: If at any time you feel your situation is an emergency, please call 911 immediately. . Non-Emergent Contact Non-Emergency issues call your: Marketing Analytics Specialist Call Non-Emergent contact if: your pain is not controlled [phone] . . "Provider Documentation" section prepared by Lalo Emery. .
[2017-09-27 09:27] VITALS: BP 155/87; PULSE 56; O2SAT 97
--- NOTE | 2017-09-27 09:36 | Anesthesia Progress Nt - [facility] ---
Anesthesia Post Op Note Date & Time Sep 27, 2017 at 09:36 Vital Signs Pain Intensity: 0 Vital Signs Past 12 Hours Date Time Temp Pulse Resp B/P (MAP) Pulse Ox O2 Delivery O2 Flow Rate FiO2 09/27/17 09:27 56 16 155/87 (109) 97 Room Air 09/27/17 08:58 36.3 57 16 143/85 (104) 96 Room Air 09/27/17 08:06 36.9 62 22 149/94 (112) 96 Room Air Notes Mental Status: alert / awake / arousable, participated in evaluation Pt Amnestic to Procedure: Yes Nausea / Vomiting: adequately controlled Pain: adequately controlled Airway Patency, RR, SpO2: stable & adequate BP & HR: stable & adequate Hydration State: stable & adequate Anesthetic Complications: no major complications apparent
== END | disposition home or self-care (01) ==
LOC: X.SURG 07:48
PROVIDERS: ATTEND Specialist
DX: H25.11 Age-related nuclear cataract, right eye (principal); I10 Essential (primary) hypertension; Z79.84 Long term (current) use of oral hypoglycemic drugs; Z79.899 Other long term (current) drug therapy

== ENCOUNTER 2023-07-17 19:53 | Inpatient (IN) ==
[2023-07-17] MEDS ORDERED: ACETAMINOPHEN 500 MG TAB PO STA (20:03)
--- NOTE | 2023-07-17 20:07 | Emergency Department Note ---
Impression & Plan Generalized weakness, COVID-19, Elevated CK, Acute hypoxic respiratory failure ED Provider Note HISTORY OF PRESENT ILLNESS: Patient is an 78-year-old male presenting with generalized weakness. Patient reports that he has been feeling generally unwell for the last 48 hours. Denies any recent sick contact exposures. Denies any chest pain or shortness of breath. He does not wear any supplemental oxygen at baseline. EMS reported that the patient was having nausea, vomiting and diarrhea, but the patient denies any of this on my assessment. Patient denies any recent travel. He denies any cough. Denies any dysuria or hematuria. ROS: as above PHYSICAL EXAM: Constitutional: Patient appears in no acute distress. HENT: Head: Normocephalic and atraumatic. Eyes: EOMI, PERRL Mouth/Throat: Mucous membranes moist. Neck: Trachea midline. Neck supple. Cardiovascular: RRR, No murmurs, rubs or gallops. Intact distal pulses. Pulmonary/Chest: No respiratory distress. Breath sounds clear and equal bilaterally. No wheezes or rales. Abdominal: Abdomen soft, no tenderness, rebound or guarding. Musculoskeletal: No edema, tenderness or deformity noted. Patient is able to straight leg raise of bilateral legs without any pain in his back or pelvis. Skin: Warm and dry. No rash, erythema, pallor or cyanosis Psychiatric: Appropriate mood and affect for situation. Neurological: Alert and keenly responsive. CN II-XII grossly intact, moving all extremities equally and fully. MDM: - Vitals signs showed hypoxic down to 80% on room air. He is placed on 2 L nasal cannula. - History obtained via patient and EMS. Patient presents with generalized weakness. Patient reports he been feeling generally well for the last 48 hours. Denies any recent sick contact exposures. Denies any chest pain or shortness of breath. He does not wear supplemental oxygen at baseline. Denies any DVT or PE history. EMS reports that the family had said the patient was having nausea, vomiting and diarrhea for the last few days. Patient denies this on arrival. Denies any recent travel. - Chronic conditions affecting care: DM-2; HTN; HLD; CAD - Differential diagnoses include, but are not limited to: ACS; pneumonia; UTI; viral syndrome; PE; electrolyte abnormality; CVA - Order placed for continuous cardiac monitoring. At this time, monitor showed rate of 77 bpm with normal sinus rhythm, per my interpretation. - External medical records reviewed. EMS run sheet was reviewed. Patient medically stable in route. - EKG reviewed by myself showed normal sinus rhythm. Rate 78 bpm. QTc 433. No acute ischemic changes. - Laboratory workup interpreted by myself showed leukocytosis (WBC 12.75); CKD ; normal troponin; normal lactate; elevated CK (344); normal BNP - Biofire positive for COVID-19 infection - UA negative for infection - CXR negative for pneumonia, per my interpretation. - Patient given 1g IV tylenol and 1L NS in ER. Given 20 mg IV solumedrol in ER. - Patient still having significant weakness in the emergency department, likely secondary to COVID-19 infection. He is also still requiring supplemental oxygen to keep his saturations above 93%. - Discussion was had with care management about patient's case and need for admission - Hospitalist consulted for admission - [facility] ASSESSMENT AND PLAN: Diagnosis: Generalized weakness; COVID-19 infection; acute hypoxic respiratory failure; elevated CK Plan: admit Past Med/Surg History Medical History (Updated 07/18/23 @ 01:23 by Barbara Guerrero MD) Type 2 diabetes mellitus with retinopathy Vitamin D deficiency Anemia due to chronic kidney disease Type 2 diabetes mellitus with chronic kidney disease Diabetic retinopathy Chronic kidney disease, stage 3 Dyslipidemia Hypertension CAD (coronary artery disease) Surgical History S/P coronary artery stent placement Family History Sister Cancer Mother Cancer Denies family history of Ovarian cancer Prostate cancer Myocardial infarction Breast cancer Colorectal cancer Social History Smoking Status: Current every day smoker Tobacco Type: Smokeless Tobacco (Dip or Chew) Age Started Using Tobacco: 13; Age Quit Using Tobacco: 23; Second Hand Exposure: No; Do You Dip or Chew Tobacco: Yes; Hx Alcohol Use: No Hx Substance Use: No Preferred Language: Mohawk marital status: / Current Living Situation: Alone current occupational status: retired Feels Safe at Home: Yes Childhood Exposure to Second-Hand Smoke: Yes Dental Care, Regularly: No Physical Activity Frequency: Does not Exercise Seatbelt Use: sometimes Sunscreen Use: Yes Allergies Allergies Allergy/AdvReac Type Severity Reaction Status Date / Time No Known Allergies Allergy Verified 07/17/23 21:17 Home Meds Home Medications Medication Instructions Recorded Confirmed aspirin 81 mg tablet,delayed 81 mg PO DAILY 07/17/23 07/17/23 release cyanocobalamin (vitamin B-12) 100 0 mcg PO DAILY 07/17/23 07/17/23 mcg tablet glipizide 10 mg tablet 10 mg PO QPM 07/17/23 07/17/23 glipizide 10 mg tablet 20 mg PO QAM 07/17/23 07/17/23 Previous Rx's Medication Instructions Recorded metoprolol succinate 100 mg 100 mg PO DAILY #90 tabs 11/03/22 tablet,extended release 24 hr cholecalciferol (vitamin D3) 50 50 mcg PO DAILY #30 caps 11/07/22 mcg (2,000 unit) capsule amlodipine 10 mg tablet 10 mg PO DAILY #90 tabs 11/28/22 losartan 100 mg tablet 100 mg PO DAILY #90 tabs 11/28/22 insulin glargine 100 unit/mL (3 25 unit (0.25 mL) subcut QAM #45 mL 03/07/23 mL) subcutaneous pen (Lantus Solostar U-100 Insulin) atorvastatin 40 mg tablet 40 mg PO DAILY #90 tabs 06/20/23 clopidogrel 75 mg tablet 75 mg PO DAILY #90 tabs 06/20/23 empagliflozin 10 mg tablet 10 mg PO DAILY #90 tabs 07/10/23 (Jardiance) pantoprazole 40 mg tablet,delayed 40 mg PO DAILY #90 tabs 07/10/23 release Results & Data (ED) Vital Signs Vital Signs - 24 hr 07/17/23 20:00 07/17/23 21:05 07/17/23 21:30 Temperature 38 C H Temperature Source Oral Pulse Rate 77 80 75 Pulse Rate from SpO2 Sensor Respiratory Rate 20 18 Blood Pressure 141/69 H 119/59 L Blood Pressure Mean 93 79 Pulse Oximetry 92 99 Oxygen Delivery Method Room Air Oxygen Flow Rate Sepsis Recent Fever Within 48 Hours No Sepsis New/Unexplained Change in Mental Status No Sepsis Action Taken by Nursing No Action Required Oxygen Flow Rate - Titration Pulse Oximetry Post Tiitration 07/17/23 21:37 07/17/23 23:00 07/17/23 23:30 Temperature Temperature Source Pulse Rate 67 65 Pulse Rate from SpO2 Sensor 67 65 Respiratory Rate 15 18 Blood Pressure 118/65 130/66 Blood Pressure Mean 82 87 Pulse Oximetry 88 L 96 95 Oxygen Delivery Method Room Air Nasal Cannula Nasal Cannula Nasal Cannula Oxygen Flow Rate 0 3 3 Sepsis Recent Fever Within 48 Hours Sepsis New/Unexplained Change in Mental Status Sepsis Action Taken by Nursing Oxygen Flow Rate - Titration 3 Pulse Oximetry Post Tiitration 95 07/18/23 00:00 Temperature Temperature Source Pulse Rate 74 Pulse Rate from SpO2 Sensor 74 Respiratory Rate 12 Blood Pressure 134/69 Blood Pressure Mean 90 Pulse Oximetry 98 Oxygen Delivery Method Room Air Oxygen Flow Rate Sepsis Recent Fever Within 48 Hours Sepsis New/Unexplained Change in Mental Status Sepsis Action Taken by Nursing Oxygen Flow Rate - Titration Pulse Oximetry Post Tiitration Laboratory Data 07/17/23 20:31 07/17/23 20:31 Lab Results 07/17/23 07/17/23 07/17/23 Range/Units 20:31 20:40 Unknown WBC 12.75 H (4.8-10.8) K/ul RBC 4.68 L (4.70-6.10) M/uL Hgb 14.4 (14.0-18.0) g/dl Hct 43.1 (42.0-52.0) % MCV 92.1 (80.0-100.0) fL MCH 30.8 (25.0-34.0) pg MCHC 33.4 (32.0-36.0) g/dL RDW Std Deviation 46.8 H (36.4-46.3) fL RDW Coeff of Evelyne 13.8 (11.5-14.5) % Plt Count 174 (130-400) K/uL MPV 12.0 (9.4-12.4) fL Immature Gran % (Auto) 0.2 % Neut % (Auto) 86.1 % Lymph % (Auto) 5.3 % [place] % (Auto) 7.8 % Eos % (Auto) 0.2 % Baso % (Auto) 0.4 % Neut # (Auto) 10.98 H (1.40-6.50) K/uL Lymph # (Auto) 0.67 L (1.20-3.40) K/uL [place] # (Auto) 1.00 H (0.11-0.59) K/uL Eos # (Auto) 0.02 (0.00-0.50) K/uL Baso # (Auto) 0.05 (0.00-0.20) K/uL Immature Gran # (Auto) 0.03 (0.01-0.20) K/uL PT 11.4 (9.0-12.0) Seconds INR 1.0 (0.9-1.1) Sodium 138 (136-145) mmol/L Potassium 4.7 (3.5-5.1) mmol/L Chloride 107 (98-107) mmol/L Carbon Dioxide 21 (21-32) mmol/L Anion Gap 10 (3-11) BUN 40 H (6-23) mg/dl Creatinine 2.23 H (0.6-1.4) mg/dl Est Cr Clr Drug Dosing 29.6 ml/min Est GFR ( Amer) 31.1 ml/min Est GFR (Non-Af Amer) 26.8 ml/min BUN/Creatinine Ratio 17.9 (10-20) Glucose 221 H (70-99(Fasting)) mg/dl Lactate 1.9 (0.4-2.0) mmol/L Calcium 9.5 (8.6-10.3) mg/dl Magnesium 2.0 (1.7-2.4) mg/dl Total Bilirubin 1.2 H (0.2-1.0) mg/dl AST 20 (13-39) U/L ALT 27 (7-52) U/L Alkaline Phosphatase 79 (34-104) U/L Total Creatine Kinase 344 H (30-223) U/L Troponin I High Sens 8.6 (0-20) pg/ml B-Natriuretic Peptide 93 (0-100) pg/ml Total Protein 7.2 (6.0-8.3) gm/dl Albumin 4.2 (3.4-5.0) gm/dl Globulin 3.0 (2.5-4.0) gm/dl Albumin/Globulin Ratio 1.4 (0.9-2) Urine Color Yellow Urine Appearance Clear (Clear) Urine pH 5.0 (4.5-7.5) Ur Specific [place] 1.027 (1.000-1.030) Urine Protein 1+ H (Negative) Urine Glucose (UA) 3+ H (Negative) Urine Ketones Negative (Negative) Urine Blood Trace H (Negative) Urine Nitrite Negative (Negative) Urine Bilirubin Negative (Negative) Urine Urobilinogen Negative (Negative) Ur Leukocyte Esterase Negative (Negative) Urine WBC (Auto) 0 (0-5) /hpf Urine RBC (Auto) 0-4 (0-4) /hpf U Hyaline Cast (Auto) 0 (0-5) /lpf U Epithel Cells (Auto) 0-5 (0-5) /lpf Urine Bacteria (Auto) Negative (Negative) Adenovirus (PCR) Not Detected (NotDetected) B. pertussis DNA (PCR) Not Detected (NotDetected) B.parapertussis DNA PCR Not Detected (NotDetected) C. pneumoniae DNA (PCR) Not Detected (NotDetected) Coronavirus OC43 (PCR) Not Detected (NotDetected) Coronavirus HKU1 (PCR) Not Detected (NotDetected) Coronavirus 229E (PCR) Not Detected (NotDetected) SARS-CoV-2 (PCR) DETECTED A* (NotDetected) Coronavirus NL63 (PCR) Not Detected (NotDetected) Human Metapneumovir PCR Not Detected (NotDetected) Influenza Type A (PCR) Not Detected (NotDetected) Influenza Type B (PCR) Not Detected (NotDetected) M. pneumoniae (PCR) Not Detected (NotDetected) Parainfluenza 1 (PCR) Not Detected (NotDetected) Parainfluenza 2 (PCR) Not Detected (NotDetected) Parainfluenza 3 (PCR) Not Detected (NotDetected) Parainfluenza 4 (PCR) Not Detected (NotDetected) RSV (PCR) Not Detected (NotDetected) Entero/Rhino (PCR) Not Detected (NotDetected) Administered Medications Remdesivir 200 mg/ Sodium (Chloride) 250 mls @ 125 mls/hr IV ONE STA; Protocol Stop: 07/18/23 02:48 Last Admin: 07/18/23 01:14 Dose: 125 mls/hr Documented By: KMF Discontinued Medications Acetaminophen (Acetaminophen 500 Mg Tab) 1,000 mg PO NOW STA Stop: 07/17/23 20:04 Last Admin: 07/17/23 20:35 Dose: 1,000 mg Documented By: QUINTON Sodium Chloride (Nss) 1,000 mls @ 999 mls/hr IV .Q1H1M MELY Stop: 07/17/23 21:15 Last Infusion: 07/17/23 22:00 Dose: Infused Documented By: Admin: 07/17/23 20:35 Dose: 999 mls/hr Documented By: QUINTON Methylprednisolone (Methylprednisolone 40 Mg/Ml Vial) 20 mg IV NOW STA Stop: 07/17/23 23:53 Last Admin: 07/18/23 01:11 Dose: 20 mg Documented By: [email or web address] Discharge Plan Visit Data Chief Complaint: Illness Stated Complaint: Vomiting, Weakness, Diarrhea ED Provider: Barbara Guerrero Discharge Problem: Generalized weakness, COVID-19, Elevated CK, Acute hypoxic respiratory failure Forms Stand Alone Forms: [facility] Prescriptions Prescriptions: No Action cholecalciferol (vitamin D3) 50 mcg (2,000 unit) capsule 50 mcg PO DAILY Qty: 30 0RF amlodipine 10 mg tablet 10 mg PO DAILY Qty: 90 3RF losartan 100 mg tablet 100 mg PO DAILY Qty: 90 3RF insulin glargine [Lantus Solostar U-100 Insulin] 100 unit/mL (3 mL) insulin pen 25 unit subcut QAM Qty: 45 2RF metoprolol succinate 100 mg tablet extended release 24 hr 100 mg PO DAILY Qty: 90 3RF atorvastatin 40 mg tablet 40 mg PO DAILY Qty: 90 3RF clopidogrel 75 mg tablet 75 mg PO DAILY Qty: 90 3RF Jardiance 10 mg tablet 10 mg PO DAILY Qty: 90 3RF pantoprazole 40 mg tablet,delayed release (DR/EC) 40 mg PO DAILY Qty: 90 3RF aspirin [Aspir-81] 81 mg Tablet,Delayed Release (Dr/Ec) 81 mg PO DAILY glipizide 10 mg tablet 20 mg PO QAM glipizide 10 mg tablet 10 mg PO QPM cyanocobalamin (vitamin B-12) 100 mcg Tablet 0 mcg PO DAILY Referrals Referrals: Nadege Erickson MD [Primary Care Provider] -
[2023-07-17] MEDS ORDERED: SODIUM CHLORIDE 0.9% 1,000 ML IV SCH (20:15)
[2023-07-17 21:03] LABS: Appearance Urine Clear (Clear); Bacteria Urine Automated Negative (Negative); Bilirubin Urine Negative (Negative); Blood Urine Trace (Negative); Cast Urine Automated 0 /lpf (0-5); Color Urine Yellow; Epithelial Cell Urine Auto 0-5 /lpf (0-5); Glucose Urine UA 3+ (Negative); Ketones Urine Negative (Negative); Leukocyte Esterase Urine Negative (Negative); Nitrite Urine Negative (Negative); Protein Urine 1+ (Negative); RBC Urine Automated 0-4 /hpf (0-4); Specific Gravity Urine 1.027 (1.000-1.030); Urobilinogen Urine Negative (Negative); WBC Urine Automated 0 /hpf (0-5)
[2023-07-17 21:11] LABS: Albumin Globulin Ratio 1.4 (0.9-2); Albumin Level 4.2 gm/dl (3.4-5.0); BUN Creatinine Ratio 17.9 (10-20); Bilirubin,Total 1.2 mg/dl (0.2-1.0); Calcium 9.5 mg/dl (8.6-10.3); Creatinine Clr Calc Pharmacy 29.6 ml/min; Est GFR (African American) 31.1 ml/min; Est GFR (Non-African American) 26.8 ml/min; Potassium 4.7 mmol/L (3.5-5.1); Total Protein 7.2 gm/dl (6.0-8.3)
[2023-07-17 21:13] LABS: Basophils # (auto) 0.05 K/uL (0.00-0.20); Basophils % (auto) 0.4 %; Eosinophils # (auto) 0.02 K/uL (0.00-0.50); Eosinophils % (auto) 0.2 %; Hematocrit (blood only) 43.1 % (42.0-52.0); Hemoglobin 14.4 g/dl (14.0-18.0); Immature Granulocytes # (auto) 0.03 K/uL (0.01-0.20); Immature Granulocytes % (auto) 0.2 %; Lymphocytes # (auto) 0.67 K/uL (1.20-3.40); Lymphocytes % (auto) 5.3 %; Mean Corpuscular Hemoglobin 30.8 pg (25.0-34.0); Mean Corpuscular Hgb Conc 33.4 g/dL (32.0-36.0); Mean Corpuscular Volume 92.1 fL (80.0-100.0); Monocytes % (auto) 7.8 %; Neutrophils # (auto) 10.98 K/uL (1.40-6.50); Neutrophils % (auto) 86.1 %; Platelet Count 174 K/uL (130-400); RDW Coefficient of Variation 13.8 % (11.5-14.5); RDW Standard Deviation 46.8 fL (36.4-46.3); Red Blood Count 4.68 M/uL (4.70-6.10); White Blood Count 12.75 K/ul (4.8-10.8)
[2023-07-17 21:17] LABS: Troponin I High Sensitivity 8.6 pg/ml (0-20)
[2023-07-17 21:42] LABS: Prothrombin Time 11.4 Seconds (9.0-12.0)
[2023-07-17 23:08] LABS: Adenovirus PCR Not Detected (NotDetected); Bordetella parapertussis PCR Not Detected (NotDetected); Bordetella pertussis PCR Not Detected (NotDetected); Chlamydia pneumoniae PCR Not Detected (NotDetected); Coronavirus 229E PCR Not Detected (NotDetected); Coronavirus HKU1 PCR Not Detected (NotDetected); Coronavirus NL63 PCR Not Detected (NotDetected); Coronavirus OC43PCR Not Detected (NotDetected); Human Metapneumovirus PCR Not Detected (NotDetected); Influenza A PCR Not Detected (NotDetected); Influenza B PCR Not Detected (NotDetected); Mycoplasma pneumoniae PCR Not Detected (NotDetected); Parainfluenza Virus 1 PCR Not Detected (NotDetected); Parainfluenza Virus 2 PCR Not Detected (NotDetected); Parainfluenza Virus 3 PCR Not Detected (NotDetected); Parainfluenza Virus 4 PCR Not Detected (NotDetected); Respiratory Syncytial VirusPCR Not Detected (NotDetected); Rhinovirus/Enterovirus PCR Not Detected (NotDetected)
[2023-07-17 23:20] LABS: Coronavirus CoV-2 (COVID19)PCR DETECTED (NotDetected)
[2023-07-18] MEDS ORDERED: guaiFENesin/DEXTROM SYRUP 100MG/10MG 5ML UDC PO STA (00:49)
[2023-07-18] MEDS ORDERED: REMDESIVIR 200 MG in SODIUM CHLORIDE 0.9% 210 ML IV STA (00:49)
--- NOTE | 2023-07-18 01:16 | History & Physical Report ---
Date of Service July 18, 2023 Assessment & Plan (1) COVID-19: Plan: 78 M with PMH of HTN, T2DM, dyslipidemia, CAD s/p stent, who presented with fatigue, weakness, and cough. Now stable and admitted for further management of acute COVID-19 illness. COVID-19/generalized weakness -COVID-19 positive on biofire. Febrile. O2 saturation 88% on arrival saturating >95% on 2 L O2 via NC. Slight leukocytosis (WBC-12.75). BNP-93. L actate-1.9. -No increased work of breathing. Speaking complete sentences lungs clear to auscultation on admission exam. -S/p IV methylprednisolone 20 mg in the ED. -Received loading dose of remdesivir 200 mg on admission. * Admit to [facility] telemetry * IV remdesivir 100 mg daily on days 2-5. * IV dexamethasone 6 mg daily x10 days, or until discharge. * Guaifenesin 10 mL every 6 hours as needed * Combivent inhaler 4 times daily x24 hours * Tylenol 1000 mg p.o. every 8 hours as needed for fever Elevated CK -344 on ED labs. Vague complaint of generalized myalgia no focal muscle pain. -Patient does take atorvastatin for dyslipidemia. -S/p NS bolus x1 L in the ED. * Trend on morning labs. T2DM -Chronic. On glipizide, empagliflozin, and glargine 25 units daily. -Serum glucose 221 on admission. Last [id number] in March. * Holding glipizide, empagliflozin. * Continue glargine at home dose * Sliding scale insulin, ACHS glucose checks per protocol (CF-30, CR-5, range = 100-140) * Trend HgbA1c on a.m. labs CKD 4 -eGFR on admission 26.8. Cr 2.23, which is at baseline. * Monitor on daily labs CAD s/p stent/dyslipidemia -On aspirin 81 mg, atorvastatin 40 mg daily, clopidogrel 75 mg daily, losartan 100 mg daily, and Toprol 100 mg daily. -No echo reports on file. Patient follows with [facility] cardiology (most recent visit note mentions abnormal stress echo from September 2015 suggestive of apical ischemia at 79% MPHR). * Continue current regimen Hypertension -Well-controlled on amlodipine 10 mg daily, losartan 100 mg daily, and Toprol 100 mg daily. * Continue current regimen Vitamin D deficiency * Continue home vitamin D3 (2000 IU) tabs daily Code: Full code Dispo: Med-Surg telemetry FEN/GI: Heart healthy/Carb consistent DVT Prophylaxis: Lovenox 40 mg q24h PT/OT: No Consults: None Case Management: No (2) Generalized weakness: (3) Elevated CK: (4) Type 2 diabetes mellitus with retinopathy: (5) Vitamin D deficiency: (6) CKD (chronic kidney disease) stage 4, GFR 15-29 ml/min: (7) Dyslipidemia: (8) Hypertension: (9) CAD (coronary artery disease): History of Present Illness Primary Care Provider: Nadege Erickson MD Dale is an 78-year-old man with past medical history of type 2 diabetes, hypertension, hyperlipidemia, CKD 4, and CAD who presents with weakness and fatigue x2 days. Son and [id number] were worried about his weakness, as he lives alone and called EMS to bring him to the emergency room. Per EMS, he reported nausea, vomiting, and diarrhea. However, in the ED he denies all of these, as well as chest pain or shortness of breath. He further denies recent exposures to sick contacts. He denies recent travel, dysuria or hematuria. ROS + on admission cough, fever. In the ED, vitals were notable for fever of 38 C, and hypoxia to the 80s on room air. He was subsequently placed on a 2 L oxygen via nasal cannula, after which his saturation improved. Labs were notable for WBC count of 12.75 (neutrophilic predominance), BUN-40, Cr-2.23, CK-344, and T. bili-1.2. Urinalysis revealed proteinuria 1+, trace hematuria, and 3+ glucosuria but was negative for nitrites, leuk esterase or bacteriuria. Respiratory Biofire PCR panel returned positive solely for COVID-19. He received a dose of p.o. Tylenol, IV methylprednisolone 20 mg, and a 1 L bolus of normal saline. Hospitalist service was then consulted for admission. Allergies Allergy/AdvReac Type Severity Reaction Status Date / Time No Known Allergies Allergy Verified 07/17/23 21:17 Home Medications Medication Instructions Recorded Confirmed Type metoprolol succinate 100 mg 100 mg PO DAILY #90 tabs 11/03/22 07/17/23 Rx tablet,extended release 24 hr cholecalciferol (vitamin D3) 50 50 mcg PO DAILY #30 caps 11/07/22 07/17/23 Rx mcg (2,000 unit) capsule amlodipine 10 mg tablet 10 mg PO DAILY #90 tabs 11/28/22 07/17/23 Rx losartan 100 mg tablet 100 mg PO DAILY #90 tabs 11/28/22 07/17/23 Rx insulin glargine 100 unit/mL (3 25 unit (0.25 mL) subcut QAM #45 mL 03/07/23 07/17/23 Rx mL) subcutaneous pen (Lantus Solostar U-100 Insulin) atorvastatin 40 mg tablet 40 mg PO DAILY #90 tabs 06/20/23 07/17/23 Rx clopidogrel 75 mg tablet 75 mg PO DAILY #90 tabs 06/20/23 07/17/23 Rx empagliflozin 10 mg tablet 10 mg PO DAILY #90 tabs 07/10/23 07/17/23 Rx (Jardiance) pantoprazole 40 mg tablet,delayed 40 mg PO DAILY #90 tabs 07/10/23 07/17/23 Rx release aspirin 81 mg tablet,delayed 81 mg PO DAILY 07/17/23 07/17/23 History release cyanocobalamin (vitamin B-12) 100 0 mcg PO DAILY 07/17/23 07/17/23 History mcg tablet glipizide 10 mg tablet 10 mg PO QPM 07/17/23 07/17/23 History glipizide 10 mg tablet 20 mg PO QAM 07/17/23 07/17/23 History Past Med/Surg History Medical History (Updated 07/18/23 @ 01:34 by Nury Zee MD) Edema Type 2 diabetes mellitus with retinopathy Vitamin D deficiency Anemia due to chronic kidney disease Type 2 diabetes mellitus with chronic kidney disease Diabetic retinopathy Chronic kidney disease, stage 3 Dyslipidemia Hypertension CAD (coronary artery disease) Surgical History S/P coronary artery stent placement Family History Sister Cancer Mother Cancer Denies family history of Ovarian cancer Prostate cancer Myocardial infarction Breast cancer Colorectal cancer Social History Smoking Status: Never smoker Tobacco Type: Smokeless Tobacco (Dip or Chew) Age Started Using Tobacco: 13; Age Quit Using Tobacco: 23; Second Hand Exposure: No; Do You Dip or Chew Tobacco: Yes; Hx Alcohol Use: No Hx Substance Use: No Preferred Language: Slovak Communication Ability: Effective 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 marital status: / Current Living Situation: Alone current occupational status: retired Other Information That Helps Us Care for You: No Feels Safe at Home: Yes Safety Concerns: Feels Safe At This Time Childhood Exposure to Second-Hand Smoke: Yes Dental Care, Regularly: No Physical Activity Frequency: Does not Exercise Seatbelt Use: sometimes Sunscreen Use: Yes Assistive Devices: Denture - Upper, Denture - Lower and Oxygen - Continuous Review of Systems Review of Systems: All systems reviewed & are unremarkable except as noted in HPI & below Physical Exam Physical Exam: General: No acute distress HEENT: PERRLA. Normal conjunctiva, anicteric sclera. Oropharynx normal. Respiratory: Normal respiratory effort, CTABL. Cardiovascular: RRR without murmurs, gallops, or rubs. No pedal edema. GI: Soft abdomen. Nontender x4 quadrants Neuro: Alert and oriented x3. Results & Data Results & Data Vital Signs (Past 12 Hours) Vital Signs Temp Pulse Resp BP Pulse Ox O2 Del Method O2 Flow Rate 07/18/23 00:00 74 12 134/69 98 Room Air 07/17/23 23:30 65 18 130/66 95 Nasal Cannula 3 07/17/23 23:00 67 15 118/65 96 Nasal Cannula 3 07/17/23 21:37 88 L Room Air, Nasal Cannula 0 07/17/23 21:30 75 18 119/59 L 99 07/17/23 21:05 80 07/17/23 20:00 38 C H 77 20 141/69 H 92 Room Air Supervising Physician Co-Signing Physician Notes Patient seen and examined, chart reviewed, case discussed with Dr. Zee and I agree with the assessment and plan as documented above. In brief, patient is an 78-year-old male with history of diabetes, hypertension, hyperlipidemia, CKD and CAD presenting with 2 days of weakness and fatigue. Patient has been having difficulty ambulating and going about his ADLs. In the ER he was found to be febrile at 38 with mild hypoxia requiring placement of supplemental oxygen. Found to be positive for COVID 19 infection. On physical exam patient is febrile, hemodynamically stable. Adequate oxygenation on 2 L nasal cannula Generalpatient awake alert, following commands HEENTpupils equal and reactive, moist mucous membranes, neck supple Heart+ S1, S2, regular, no murmur/rub/gallops LungsCTA anteriorly, no rales/rhonchi/wheezes Abdomensoft, nontender, nondistended Extremitieswarm, well-perfused Labs and images reviewed Assessment/[id number] male presenting with COVID-19 infection, generalized weakness and mild hypoxia requiring supplemental oxygen Admit to medical telemetry Treatment of COVID-19 with dexamethasone 6 mg IV daily as well as remdesivir per protocol. Symptomatic management with guaifenesin, Combivent Tylenol as n eeded Management of chronic medical problems as above Resident Activity Tracking Resident Involvement: Resident Care Provided Care Provided: Adult Hospital Medicine (4) Type 2 diabetes mellitus with retinopathy Diabetes mellitus jail insulin use: with jail use Diabetes mellitus macular edema: macular edema presence unspecified Diabetic retinopathy severit y: with unspecified retinopathy severity Laterality: unspecified laterality Qualified Code(s): E11.319 - Type 2 diabetes mellitus with unspecified diabetic retinopathy without macular edema; Z79.4 - [facility] (current) use of insulin
[2023-07-18] MEDS ORDERED: CARBOHYDRATES FOR HYPOGLYCEMIA PO PRN (01:31)
[2023-07-18] MEDS ORDERED: ACETAMINOPHEN 500 MG TAB PO PRN (01:31)
[2023-07-18] MEDS ORDERED: GLUCOSE 40% GEL 15 GM TUBE PO PRN (01:31)
[2023-07-18] MEDS ORDERED: guaiFENesin/DEXTROM SYRUP 200MG/20MG 10ML UDC PO PRN (01:31)
[2023-07-18] MEDS ORDERED: GLUCAGON FOR INJ 1 MG VIAL SQ PRN (01:31)
[2023-07-18] MEDS ORDERED: GLUCOSE 10 TAB/TUBE PO PRN (01:31)
[2023-07-18] MEDS ORDERED: DEXTROSE 50% 50 ML SYRINGE IV PRN (01:31)
[2023-07-18] MEDS: dexAMETHasone 6 MG in SYRINGE 0 ML IV SCH (01:41)
[2023-07-18] MEDS: INSULIN ASPART PER UNIT CHARGE SC SCH ×5 (02:10→20:12)
[2023-07-18 05:30] LABS: BUN Creatinine Ratio 18.9 (10-20); Creatinine Clr Calc Pharmacy 33.6 ml/min; Est GFR (African American) 36.4 ml/min; Est GFR (Non-African American) 31.4 ml/min; Potassium 4.5 mmol/L (3.5-5.1)
[2023-07-18] MEDS ORDERED: IPRATROPIUM BROMIDE HFA INHALER INH SCH (07:00)
[2023-07-18] MEDS ORDERED: ALBUTEROL HFA 8 GM INHALER INH SCH (07:00)
--- NOTE | 2023-07-18 07:34 | XRay Report ---
XR chest 1V portable HISTORY: 78 years-old Male weakness; cough acute cough with weakness COMPARISON: 11/17/2016 TECHNIQUE: AP view of the chest FINDINGS: Cardiac silhouette is enlarged. Atherosclerosis of the aorta. Mild linear scarring versus atelectasis in the left lung base. The lungs are hypoinflated. No pneumothorax, pleural effusion or overt pulmon vale edema. Degenerative changes of the shoulders and spine. Chronic mid left clavicular fracture defo rmity. IMPRESSION: Hypoinflation without acute process. ACT 112: Negative or not required by law. The above report was generated using voice recognition software. It may contain grammatical, syntax o r spelling errors. Electronically signed by: Jeffrey Smith M.D. 07/18/2023 7:33 AM
[2023-07-18] MEDS: amLODIPine BESYLATE 5 MG TAB PO SCH (08:05)
[2023-07-18] MEDS: ASPIRIN 81 MG ECTAB PO SCH (08:05)
[2023-07-18] MEDS: CLOPIDOGREL BISULFATE 75 MG TAB PO SCH (08:06)
[2023-07-18] MEDS: CHOLECALCIFEROL 1,000 UNITS 25 MCG TAB PO SCH (08:06)
[2023-07-18] MEDS: ATORVASTATIN 40 MG TAB PO SCH (08:06)
[2023-07-18] MEDS: ENOXAPARIN INJ 40 MG/0.4 ML SYR SQ SCH (08:07)
[2023-07-18] MEDS: CYANOCOBALAMIN (B-12) 100 MCG TABLET PO SCH (08:07)
[2023-07-18] MEDS: LOSARTAN POTASSIUM 50 MG TAB PO SCH (08:08)
[2023-07-18] MEDS: METOPROLOL SUCC 50MG EXT REL TAB PO SCH (08:08)
[2023-07-18] MEDS: PANTOprazole 40 MG TAB PO SCH (08:08)
[2023-07-18 08:24] LABS: Estimated Average Glucose 203 mg/dl; Hemoglobin A1C 8.7 % (4.5-5.6)
--- NOTE | 2023-07-18 08:24 | Hospitalist Progress Note ---
Date of Service July 18, 2023 Assessment & Plan (1) COVID-19: Plan: 78 M with PMH of HTN, T2DM, dyslipidemia, CAD s/p stent, who presented with fatigue, weakness, and cough. Now stable and admitted for further management of acute COVID-19 illness. COVID-19/generalized weakness -COVID-19 positive on biofire. Febrile. O2 saturation 88% on arrival saturating >95% on 2 L O2 via NC. Slight leukocytosis (WBC-12.75). BNP-93. Lactate-1.9. -S/p IV methylprednisolone 20 mg in the ED. -Received loading dose of remdesivir 200 mg on admission. * IV remdesivir 100 mg daily on days 2-5. * IV dexamethasone 6 mg daily x10 days, or until discharge. * Guaifenesin 10 mL every 6 hours as needed * Combivent inhaler PRN * Tylenol 1000 mg p.o. every 8 hours as needed for fever Elevated CK -344 on ED labs. Vague complaint of generalized myalgia no focal muscle pain. -Patient does take atorvastatin for dyslipidemia. -S/p NS bolus x1 L in the ED. Up trending. gentle IVF * Continue to trend T2DM -Chronic. On glipizide, empagliflozin, and glargine 25 units daily. Sugars will likely run high in the setting of steroid use. HbA1c 8.7 * Holding glipizide, empagliflozin. * Continue glargine at home dose * Sliding scale insulin, ACHS glucose checks per protocol (CF-30, CR-5, range = 100-140) CKD 4 -eGFR on admission 26.8. Cr 2.23, which is at baseline. * Monitor on daily labs CAD s/p stent/dyslipidemia -On aspirin 81 mg, atorvastatin 40 mg daily, clopidogrel 75 mg daily, losartan 100 mg daily, and Toprol 100 mg daily. * Continue current regimen Hypertension -Well-controlled on amlodipine 10 mg daily, losartan 100 mg daily, and Toprol 100 mg daily. * Continue current regimen Code: Full code Dispo: Med-Surg telemetry FEN/GI: Heart healthy/Carb consistent DVT Prophylaxis: Lovenox 40 mg q24h PT/OT: No Consults: None Case Management: No (2) Generalized weakness: (3) Elevated CK: (4) Type 2 diabetes mellitus with retinopathy: (5) Vitamin D deficiency: (6) CKD (chronic kidney disease) stage 4, GFR 15-29 ml/min: (7) Dyslipidemia: (8) Hypertension: (9) CAD (coronary artery disease): Admission and Anticipated Discharge Date Admission Date: July 18, 2023 Supervising Physician Co-Signing Physician Notes Resident Physician Supervision Note: I independently interviewed and examined the patient and verified the rivers history and physical, reviewed labs and image studies and agree with resident findings and care plan. Subjective Seen at bedside this AM. No respiratory distress. On minimal oxygen. Feeling much improved Physical Exam 2 Physical Exam: General: No acute distress HEENT: PERRLA. Normal conjunctiva, anicteric sclera. Oropharynx normal. Respiratory: Normal respiratory effort, CTABL. Cardiovascular: RRR without murmurs, gallops, or rubs. No pedal edema. GI: Soft abdomen. Nontender x4 quadrants Neuro: Alert and oriented x3. Results & Data Results & Data Vital Signs (Past 12 Hours) Vital Signs Pulse Pulse Resp BP BP Pulse Ox Pulse Ox 07/18/23 08:03 72 18 144/78 H 93 07/18/23 07:36 68 20 139/70 94 07/18/23 07:27 67 07/18/23 07:27 68 13 95 07/18/23 06:00 67 19 128/74 92 07/18/23 04:00 66 19 122/67 92 07/18/23 03:00 71 22 138/84 93 07/18/23 02:36 07/18/23 02:11 95 07/18/23 02:00 64 18 136/75 96 07/18/23 01:01 63 07/18/23 00:00 74 12 134/69 98 07/17/23 23:30 65 18 130/66 95 07/17/23 23:00 67 15 118/65 96 07/17/23 21:37 88 L 07/17/23 21:30 75 18 119/59 L 99 07/17/23 21:05 80 O2 Del Method O2 Del Method O2 Flow Rate O2 Flow Rate 07/18/23 08:03 Room Air 07/18/23 07:36 Room Air 07/18/23 07:27 07/18/23 07:27 Room Air 07/18/23 06:00 Nasal Cannula 2 07/18/23 04:00 Nasal Cannula 2 07/18/23 03:00 Nasal Cannula 2 07/18/23 02:36 Nasal Cannula 2 07/18/23 02:11 Room Air 2 07/18/23 02:00 Nasal Cannula 2 07/18/23 01:01 07/18/23 00:00 Room Air 07/17/23 23:30 Nasal Cannula 3 07/17/23 23:00 Nasal Cannula 3 07/17/23 21:37 Room Air, Nasal Cannula 0 07/17/23 21:30 07/17/23 21:05 Laboratory Results 07/17/23 20:31 07/18/23 04:35 Diagnostic Findings Chest X-Ray 07/17/23 20:04 XR chest 1V portable HISTORY: 78 years-old Male weakness; cough acute cough with weakness COMPARISON: 11/17/2016 TECHNIQUE: AP view of the chest FINDINGS: Cardiac silhouette is enlarged. Atherosclerosis of the aorta. Mild linear scarring versus atelectasis in the left lung base. The lungs are hypoinflated. No pneumothorax, pleural effusion or overt pulmonary edema. Degenerative changes of the shoulders and spine. Chronic mid left clavicular fracture deformity. IMPRESSION: Hypoinflation without acute process. Resident Activity Tracking Resident Involvement: Resident Care Provided Care Provided: Adult Hospital Medicine (4) Type 2 diabetes mellitus with retinopathy Diabetes mellitus marine oil terminal superintendent insulin use: with marine oil terminal superintendent use Diabetes mellitus macular edema: macular edema presence unspecified Diabetic retinopathy severity: with unspecified retinopathy severity Laterality: unspecified laterality Qualified Code(s): E11.319 - Type 2 diabetes mellitus with unspecified diabetic retinopathy without macular edema; Z79.4 - [facility] (current) use of insulin
[2023-07-18] MEDS ORDERED: IPRATROPIUM BROMIDE/ALBUTEROL respimat INH INH SCH (09:00)
[2023-07-18] MEDS: LANTUS PER UNIT CHARGE SC SCH (09:16)
[2023-07-18] MEDS ORDERED: ALBUTEROL HFA 8 GM INHALER INH PRN (10:21)
[2023-07-18] MEDS ORDERED: IPRATROPIUM BROMIDE HFA INHALER INH PRN (10:32)
--- NOTE | 2023-07-18 10:34 | Electrocardiogram Report ---
Test Reason : Blood Pressure : / mmHG Vent. Rate : 078 BPM Atrial Rate : 078 BPM P-R Int : 166 ms QRS Dur : 092 ms QT Int : 380 ms P-R-T Axes : 097 -05 026 degrees QTc Int : 433 ms Normal sinus rhythm Poor R wave progression, consider anterior MN vs. lead placement vs. LVH Abnormal ECG When compared with ECG of 18-NOV-2016 22:04, PRWP now present Confirmed by Carmine Santacruz ([id number]) on 07/18/2023 10:34:08 AM Referred By: REFERRED SELF Confirmed By:Carmine Santacruz
[2023-07-18] MEDS: LACTATED RINGER'S 1,000 ML IV SCH ×2 (12:51→16:52)
[2023-07-18] MEDS ORDERED: glipiZIDE 5 MG TAB PO SCH (17:00)
[2023-07-19] MEDS: LACTATED RINGER'S 1,000 ML IV SCH ×2 (01:25→08:27)
--- NOTE | 2023-07-19 03:35 | Billing Data ---
Date of Service July 18, 2023 Coding Level of Care Code 99294 INT INP/OBS CARE
[2023-07-19 06:31] LABS: Hematocrit (blood only) 35.8 % (42.0-52.0); Hemoglobin 11.9 g/dl (14.0-18.0); Mean Corpuscular Hemoglobin 30.7 pg (25.0-34.0); Mean Corpuscular Hgb Conc 33.2 g/dL (32.0-36.0); Mean Corpuscular Volume 92.5 fL (80.0-100.0); Platelet Count 170 K/uL (130-400); RDW Coefficient of Variation 13.6 % (11.5-14.5); RDW Standard Deviation 46.3 fL (36.4-46.3); Red Blood Count 3.87 M/uL (4.70-6.10); White Blood Count 10.03 K/ul (4.8-10.8)
[2023-07-19 06:37] LABS: BUN Creatinine Ratio 19.1 (10-20); Calcium 8.7 mg/dl (8.6-10.3); Creatinine Clr Calc Pharmacy 22.4 ml/min; Est GFR (African American) 24.5 ml/min; Est GFR (Non-African American) 21.1 ml/min; Phosphorus 3.5 mg/dl (2.5-4.9); Potassium 4.3 mmol/L (3.5-5.1)
--- NOTE | 2023-07-19 07:59 | Hospitalist Progress Note ---
Date of Service July 19, 2023 Assessment & Plan (1) COVID-19: Plan: 78 M with PMH of HTN, T2DM, dyslipidemia, CAD s/p stent, who presented with fatigue, weakness, and cough. Now stable and admitted for further management of acute COVID-19 illness. COVID-19/generalized weakness -COVID-19 positive on biofire. Febrile. O2 saturation 88% on arrival saturating >95% on 2 L O2 via NC. Slight leukocytosis (WBC-12.75). BNP-93. L actate-1.9. -No increased work of breathing. Speaking complete sentences lungs clear to auscultation on admission exam. -S/p IV methylprednisolone 20 mg in the ED. -Received loading dose of remdesivir 200 mg on admission. * Admit to [facility] telemetry * IV remdesivir 100 mg daily on days 2-5. * IV dexamethasone 6 mg daily x10 days, or until discharge. * Guaifenesin 10 mL every 6 hours as needed * Combivent inhaler PRN * Tylenol 1000 mg p.o. every 8 hours as needed for fever Elevated CK -344 on ED labs. Vague complaint of generalized myalgia no focal muscle pain. -Patient does take atorvastatin for dyslipidemia. -S/p NS bolus x1 L in the ED. Up trending. gentle IVF * Continue to trend T2DM -Chronic. On glipizide, empagliflozin, and glargine 25 units daily. Sugars will likely run high in the setting of steroid use. HbA1c 8.7 * Holding glipizide, empagliflozin. * Continue glargine at home dose * Sliding scale insulin, ACHS glucose checks per protocol (CF-30, CR-5, range = 100-140) CKD 4 -eGFR on admission 26.8. Cr 2.23, which is at baseline. * Monitor on daily labs CAD s/p stent/dyslipidemia -On aspirin 81 mg, atorvastatin 40 mg daily, clopidogrel 75 mg daily, losartan 100 mg daily, and Toprol 100 mg daily. -No echo reports on file. Patient [facility] with [facility] cardiology (most recent visit note mentions abnormal stress echo from September 2015 suggestive of apical ischemia at 79% MPHR). * Continue current regimen Hypertension -Well-controlled on amlodipine 10 mg daily, losartan 100 mg daily, and Toprol 100 mg daily. * Continue current regimen Vitamin D deficiency * Continue home vitamin D3 (2000 IU) tabs daily Code: Full code Dispo: Med-Surg telemetry FEN/GI: Heart healthy/Carb consistent DVT Prophylaxis: Lovenox 40 mg q24h PT/OT: No Consults: None Case Management: No (2) Generalized weakness: (3) Elevated CK: (4) Type 2 diabetes mellitus with retinopathy: (5) Vitamin D deficiency: (6) CKD (chronic kidney disease) stage 4, GFR 15-29 ml/min: (7) Dyslipidemia: (8) Hypertension: (9) CAD (coronary artery disease): Admission and Anticipated Discharge Date Admission Date: July 18, 2023 Subjective Seen at bedside this AM. No respiratory distress. On minimal oxygen. Feeling much improved Physical Exam Physical Exam: General: No acute distress HEENT: PERRLA. Normal conjunctiva, anicteric sclera. Oropharynx normal. Respiratory: Normal respiratory effort, CTABL. Cardiovascular: RRR without murmurs, gallops, or rubs. No pedal edema. GI: Soft abdomen. Nontender x4 quadrants Neuro: Alert and oriented x3. Results & Data Results & Data Vital Signs (Past 12 Hours) Vital Signs Temp Pulse Pulse Resp BP BP Pulse Ox 07/19/23 07:31 36.7 C 62 18 100/55 L 91 07/19/23 05:59 57 L 07/19/23 03:45 36.7 C 54 L 18 104/45 L 92 07/18/23 23:30 36.9 C 56 L 18 94/50 L 90 07/18/23 22:12 54 L 07/18/23 20:14 36.9 C 55 L 18 91/49 L 90 07/18/23 20:00 O2 Del Method 07/19/23 07:31 Room Air 07/19/23 05:59 07/19/23 03:45 Room Air 07/18/23 23:30 Room Air 07/18/23 22:12 07/18/23 20:14 Room Air 07/18/23 20:00 Room Air (4) Type 2 diabetes mellitus with retinopathy Diabetes mellitus superintendent marine oil terminal insulin use: with superintendent 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
[2023-07-19] MEDS: dexAMETHasone 6 MG in SYRINGE 0 ML IV SCH (08:26)
[2023-07-19] MEDS: ENOXAPARIN INJ 40 MG/0.4 ML SYR SQ SCH (08:28)
[2023-07-19] MEDS: amLODIPine BESYLATE 5 MG TAB PO SCH (08:33)
[2023-07-19] MEDS: PANTOprazole 40 MG TAB PO SCH (08:33)
[2023-07-19] MEDS: CYANOCOBALAMIN (B-12) 100 MCG TABLET PO SCH (08:33)
[2023-07-19] MEDS: LOSARTAN POTASSIUM 50 MG TAB PO SCH (08:33)
[2023-07-19] MEDS: ASPIRIN 81 MG ECTAB PO SCH (08:33)
[2023-07-19] MEDS: ATORVASTATIN 40 MG TAB PO SCH (08:33)
[2023-07-19] MEDS: CHOLECALCIFEROL 1,000 UNITS 25 MCG TAB PO SCH (08:33)
[2023-07-19] MEDS: CLOPIDOGREL BISULFATE 75 MG TAB PO SCH (08:33)
[2023-07-19] MEDS: LANTUS PER UNIT CHARGE SC SCH (08:34)
[2023-07-19] MEDS: METOPROLOL SUCC 50MG EXT REL TAB PO SCH (08:34)
[2023-07-19] MEDS: INSULIN ASPART PER UNIT CHARGE SC SCH ×2 (08:40→12:34)
[2023-07-19] MEDS ORDERED: REMDESIVIR 100 MG in SODIUM CHLORIDE 0.9% 230 ML IV SCH (12:00)
--- NOTE | 2023-07-19 14:38 | Discharge Summary ---
Date of Service July 19, 2023 Admission HPI Per Admitting Provider Dale is an 78-year-old man with past medical history of type 2 diabetes, hypertension, hyperlipidemia, CKD 4, and CAD who presents with weakness and fatigue x2 days. Son and [id number] were worried about his weakness, as he lives alone and called EMS to bring him to the emergency room. Per EMS, he reported nausea, vomiting, and diarrhea. However, in the ED he denies all of these, as well as chest pain or shortness of breath. He further denies recent exposures to sick contacts. He denies recent travel, dysuria or hematuria. ROS + on admission cough, fever. In the ED, vitals were notable for fever of 38 C, and hypoxia to the 80s on room air. He was subsequently placed on a 2 L oxygen via nasal cannula, after which his saturation improved. Labs were notable for WBC count of 12.75 (neutrophilic predominance), BUN-40, Cr-2.23, CK-344, and T. bili-1.2. Urinalysis revealed proteinuria 1+, trace hematuria, and 3+ glucosuria but was negative for nitrites, leuk esterase or bacteriuria. Respiratory Biofire PCR panel returned positive solely for COVID-19. He received a dose of p.o. Tylenol, IV methylprednisolone 20 mg, and a 1 L bolus of normal saline. Hospitalist service was then consulted for admission. Admission Exam Per Admitting Provider General: No acute distress HEENT: PERRLA. Normal conjunctiva, anicteric sclera. Oropharynx normal. Respiratory: Normal respiratory effort, CTABL. Cardiovascular: RRR without murmurs, gallops, or rubs. No pedal edema. GI: Soft abdomen. Nontender x4 quadrants Neuro: Alert and oriented x3. Principal Diagnosis covid 19 Discharge Exam General: No acute distress HEENT: PERRLA. Normal conjunctiva, anicteric sclera. Oropharynx normal. Respiratory: Normal respiratory effort, CTABL. Cardiovascular: RRR without murmurs, gallops, or rubs. No pedal edema. GI: Soft abdomen. Nondistended Neuro: Alert and oriented Psych: appropriate mood and affect MSK: no obvious deformities Discharge Data Allergies Allergy/AdvReac Type Severity Reaction Status Date / Time No Known Allergies Allergy Verified 07/17/23 21:17 Consultations 07/18/23 00:03 ED Decision to Admit Stat Hospital Course (1) COVID-19: 78 M with PMH of HTN, T2DM, dyslipidemia, CAD s/p stent, who presented with fatigue, weakness, and cough. Admitted for hypoxemia and treatment of Covid-19. COVID-19/generalized weakness COVID-19 positive on biofire. Treated with remdesivir and dexamethasone. Fevers have since resolved. Oxygen requirement resolved. Clinically improved and stable for discharge. No need for further antiviral or steroid therapy. Elevated CK Improved with gentle hydration. No need for further monitoring. T2DM Chronic. On glipizide, empagliflozin, and glargine 25 units daily. HbA1c 8.7 CKD 4 eGFR on admission 26.8. Cr 2.23, which is at baseline. CAD s/p stent/dyslipidemia On aspirin 81 mg, atorvastatin 40 mg daily, clopidogrel 75 mg daily, losartan 100 mg daily, and Toprol 100 mg daily. No echo reports on file. Patient follows with [facility] cardiology (most recent visit note mentions abnormal stress echo from September 2015 suggestive of apical ischemia at 79% MPHR). Hypertension Well-controlled on amlodipine 10 mg daily, losartan 100 mg daily, and Toprol 100 mg daily. Vitamin D deficiency Continue home vitamin D3 (2000 IU) tabs daily (2) Generalized weakness: (3) Elevated CK: (4) Type 2 diabetes mellitus with retinopathy: (5) Vitamin D deficiency: (6) CKD (chronic kidney disease) stage 4, GFR 15-29 ml/min: (7) Dyslipidemia: (8) Hypertension: (9) CAD (coronary artery disease): Total Time Total Time Spent Total Time Spent (In Minutes): see attending attestation Discharge Plan Discharge Items Patient Disposition: Home - Self-Care Reason For Visit: FEVER, FATIGUE Discharge Diagnosis: covid 19 Activity: Per Instructions section Non-emergency contact: Primary Care Provider Call non-emergency contact if: you have any medication questions and your temperature is above 101.5 Follow-up/Referrals: Nadege Erickson MD [Primary Care Provider] - 07/26/23 11:00 am Diet: Heart Healthy Addtl Attending Provider Instructions: You were admitted to the hospital for shortness of breath. You were found to have Covid 19. You were treated with Remdesivir and dexamethasone. You improved significantly and were safe for discharge home. We did not make any changes to your medications. A discharge summary will be sent to your primary care physician to ensure continuity of care. Please bring this discharge summary with you to your next office appointment so that your provider can review it at that time. Follow-up appointments: We have requested a follow-up appointment with your primary care physician within one week of discharge.Please call their office if you do not hear from them. Medications: Your medication list has been reviewed and reconciled upon discharge to ensure accuracy and continuity of care. An updated list of all your medications is included with your hospital discharge paperwork. Please review this list close ly, and make note of any changes. CONTACT YOUR PRIMARY CARE PROVIDER if you experience any of the following: shortness of breath, worsening fevers nausea or vomiting CALL 911 OR GO TO THE EMERGENCY DEPARTMENT if you experience any of the following: Sudden, severe abdominal pain or nausea/vomiting Severe chest pain, or chest pain that radiates (moves) to your jaw or arm Sudden, severe shortness of breath or difficulty breathing Thank you for allowing us to participate in your care Pending Studies at Discharge: No Stand-Alone Forms: My [facility], Smoking Cessation Medications and DC Order Prescriptions: Continued cholecalciferol (vitamin D3) 50 mcg (2,000 unit) capsule 50 mcg PO DAILY Qty: 30 0RF amlodipine 10 mg tablet 10 mg PO DAILY Qty: 90 3RF losartan 100 mg tablet 100 mg PO DAILY Qty: 90 3RF insulin glargine [Lantus Solostar U-100 Insulin] 100 unit/mL (3 mL) insulin pen 25 unit subcut QAM Qty: 45 2RF metoprolol succinate 100 mg tablet extended release 24 hr 100 mg PO DAILY Qty: 90 3RF atorvastatin 40 mg tablet 40 mg PO DAILY Qty: 90 3RF clopidogrel 75 mg tablet 75 mg PO DAILY Qty: 90 3RF Jardiance 10 mg tablet 10 mg PO DAILY Qty: 90 3RF pantoprazole 40 mg tablet,delayed release (DR/EC) 40 mg PO DAILY Qty: 90 3RF aspirin 81 mg Tablet,Delayed Release (Dr/Ec) 81 mg PO DAILY glipizide 10 mg tablet 20 mg PO QAM glipizide 10 mg tablet 10 mg PO QPM cyanocobalamin (vitamin B-12) 100 mcg Tablet 0 mcg PO DAILY Discharge Orders: Discharge Order (Routine); Ordered 07/19/23 Ordered By: Angela Tran/Other Patient Handouts: High Blood Sugar (Hyperglycemia), Hypoglycemia (Low Blood Sugar), Managing Type 2 Diabetes Admission Data Admit Date/Time: 07/18/23 00:34 Attending Provider: Glenny Clarke Admit Provider: Nury Zee Primary Care Provider: Nadege Erickson Other Providers: Lilian Payan Other Interventions: Discharge Summary Assessment (RN) Last Done: 07/19/23 15:53 Supervising Physician Co-Signing Physician Notes Resident Physician Supervision Note: I independently interviewed and examined the patient and verified the rivers history and physical, reviewed labs and image studies and agree with resident findings and care plan. Resident Activity Tracking Resident Involvement: Resident Care Provided Care Provided: Adult Hospital Medicine
[2023-07-20] MEDS ORDERED: HEPARIN SOD 5,000 UNIT/0.5 ML VIAL SC SCH (09:00)
== END 2023-07-19 15:54 | disposition home or self-care (01) | DRG 177 ==
LOC: ED 19:53 → SUATTDRO 07-18 00:34 → EDINP 07-18 00:34 → 2W 07-18 01:31
DX: J96.01 Acute respiratory failure with hypoxia; N18.4 Chronic kidney disease, stage 4 (severe); E78.5 Hyperlipidemia, unspecified; E11.319 Type 2 diabetes mellitus with unspecified diabetic retinopathy without macular edema; E55.9 Vitamin D deficiency, unspecified; Z79.82 Long term (current) use of aspirin; I25.10 Atherosclerotic heart disease of native coronary artery without angina pectoris; I12.9 Hypertensive chronic kidney disease with stage 1 through stage 4 chronic kidney disease, or unspecified chronic kidney disease; Z79.4 Long term (current) use of insulin; D63.1 Anemia in chronic kidney disease; U07.1 COVID-19; Z79.899 Other long term (current) drug therapy; F17.210 Nicotine dependence, cigarettes, uncomplicated; E11.22 Type 2 diabetes mellitus with diabetic chronic kidney disease